=== PATIENT | male | born 1950 | race Caucasian/White ===

== ENCOUNTER 2017-09-14 06:39 | Day surgery (SDC) | payer MEDICARE, OTHER, SELFPAY ==
[2017-09-14] VITALS (13 sets, daily range): BP systolic 112–146; BP diastolic 62–87; PULSE 61–99; RESP 16–18; TEMP 36.6; O2SAT 96–100; BMI 29.8
--- NOTE | 2017-09-14 | IR_ITS ---
CARDIAC CATHETERIZATION DATE OF CATHETERIZATION:09/14/2017 8:38 AM PROCEDURES: 1. Left heart catheterization 2. Left ventriculogram 3. Selective coronary angiogram INDICATION FOR TEST: 1. Risk factors for coronary artery disease 2. Abnormal EKG 3. Angina pectoris class III Informed consent was obtained prior to the procedure. COMPLICATIONS: None ESTIMATED BLOOD LOSS: Less than 10 ml. TECHNIQUE: One percent lidocaine used to anesthetize the right anterior aspect of the wrist. The right radial artery was accessed via the Seldinger technique. A 6 [place] sheath was placed in the right radial artery. 2.5 mg of verapamil, 800 mcg of nitroglycerin and 5000 U Heparin were given through the arterial sheath. The trap catheter was also used to perform left heart catheterization and left ventriculography. At the end of the procedure the patient was transferred to the post-op holding area in stable condition for arterial sheath removal. ANGIOGRAPHIC RESULTS: 1. The left main artery normal 2. 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 The circumflex artery codominant normal 4. The right coronary artery codominant normal 5. The BRIGHT ventriculogram reveals 65% 6. The left ventricular end-diastolic pressure 10 mmHg IMPRESSION: 1. Clinically insignificant myocardial bridge unlikely to be contributing to patient's symptoms 2. Normal ejection fraction 3. Normal left ventricular end-diastolic pressure 4. No evidence of atherosclerotic heart disease PLAN: 1. Medical management 2. Beta blockers plus or minus diltiazem 3. Evaluation noncardiac chest
--- NOTE | 2017-09-14 06:44 | CA_ITS ---
PROCEDURE: 2-D M-mode and color Doppler study INDICATIONS FOR THE TEST: Chest painX COPD Heart MurmurX Tobacco Smoking Palpitations Fatigue Syncope Edema HypertensionXDiabetes Mellitus Rheumatic Fever SOBXDOE Obesity Hyperlipidemia Family History HD Additional History ABN EKG,CAD PATIENT INFORMATION HEIGHT: 72 WEIGHT:219 GENDER: Male B/P:143/67 2-D/M-MODE INTERPRETATION: 2-D MEASUREMENTS OBSERVED VALUES IN CMS Right Ventricular Dimension (RVDd) 1.5 Interventricular Septum (Thickness)(IVsd) 1.0 Left Ventricular Internal Dimensions(LVIDd) 5.0 Left Ventricular Posterior Wall (Thickness)(LVPWd) 1.1 Aortic Root 3.0 Aortic Cusp Separation 1.6 Left Atrial Dimensions (LAD) 4.0 2D 1. Left atrium is qualitatively mildly enlarged, left ventricle is normal size, mild concentric left ventricular hypertrophy, visually estimated ejection fraction 55% with no obvious regional wall motion abnormality. 2. The right atrium and right ventricle are normal size and contractility. 3. The aortic valve is minimally thickened and fibrosed. 4. The mitral valve has mitral annular calcification 5. The tricuspid valve is structurally normal. 6. The pulmonic valve is poorly visualized. 7. No significant pericardial effusion noted. DOPPLER INTERROGATION: Doppler interrogation of the aortic, mitral and tricuspid valvular presence of mild mitral and tricuspid regurgitation, tricuspid regurgitant jet velocity is insufficient for calculation of the right ventricular systolic pressure, Doppler evidence of impaired LV relaxation seen. CONCLUSION: 1. Qualitatively mildly enlarged left atrium, normal left ventricular size, mild concentric left ventricular hypertrophy, visually estimated ejection fraction 55% with no obvious regional wall motion abnormality, Doppler evidence of impaired LV relaxation seen. 2. Mild mitral and tricuspid regurgitation 3. No significant pericardial effusion noted.
[2017-09-14 07:36] LABS: Basophils # 0.1 K/mm3 (0-0.2); Basophils % 1.3 % (0.1-2.0); Eosinophils # 0.1 K/mm3 (0.0-0.4); Eosinophils % 2.6 % (0.1-12.0); Hematocrit 36.7 % (42.0-52.0); Hemoglobin 11.3 g/dL (14.1-18.0); Lymphocytes % 37.8 K/mm3 (10-50); Mean Corpuscular HGB Conc 30.8 g/dL (31.8-35.4); Mean Corpuscular Hemoglobin 25.7 pg (27.0-31.2); Mean Corpuscular Volume 83.4 fl (80-94); Mean Platelet Volume 7.8 fl (7.4-10.4); Monocytes # 0.4 K/mm3 (0.1-1.0); Monocytes % 7.7 % (1.7-9.3); Neutrophils # 2.7 K/mm3 (1.8-7.8); Neutrophils % 50.6 % (37.0-80.0); Platelet Count 267 K/mm3 (142-424); Red Blood Count 4.39 M/mm3 (4.60-6.20); Red Cell Distribution Width 13.4 % (11.5-17.5); White Blood Count 5.4 K/mm3 (4.8-10.8)
[2017-09-14 07:41] LABS: Anion Gap 7.6 mEq/L (5-15); Blood Urea Nitrogen 11 mg/dL (7-18); Carbon Dioxide 29 mmol/L (21.0-32.0); Chloride 105 mmol/L (98-107); Creatinine Clearance Estimated 90 mL/min (0-300); Creatinine,Serum 1.11 mg/dL (0.70-1.30); Estimated Glomerular Filt Rate 66 ml/min (>60); GFR (African American) 80 ML/MIN (>60); Glucose 121 mg/dL (74-106); Potassium 3.6 mmoL/L (3.5-5.1); Sodium 138 mmol/L (136-145)
== END 2017-09-14 13:19 | disposition home or self-care (01) ==
LOC: CATHLAB 06:41
PROVIDERS: Family Provider Emergency Medicine; PCP Family Medicine Geriatric Medicine; Visit Provider Internal Medicine
DX: R94.31 Abnormal electrocardiogram [ECG] [EKG] (principal); I25.10 Atherosclerotic heart disease of native coronary artery without angina pectoris; R07.9 Chest pain, unspecified; R06.09 Other forms of dyspnea; Z82.49 Family history of ischemic heart disease and other diseases of the circulatory system; R01.1 Cardiac murmur, unspecified; E11.9 Type 2 diabetes mellitus without complications; Z79.84 Long term (current) use of oral hypoglycemic drugs
CPT/HCPCS: 80048; 85025; 93306; 93458; 99152; C1725; C1769; J1644; Q9967

== ENCOUNTER 2020-12-08 15:18 | Emergency (ER) | payer MEDICARE, SELFPAY ==
[2020-12-08 15:21] VITALS: BP 133/87; PULSE 95; RESP 18; TEMP 36.9; O2SAT 98; BMI 27.7
[2020-12-08 15:49] VITALS: BP 133/87; PULSE 95; RESP 18; TEMP 36.9; O2SAT 98; BMI 27.8
--- NOTE | 2020-12-08 15:56 | HMH.EDUTC ---
[facility] Disposition Clinical Impression: Cerumen impaction Qualifiers: Laterality: left Qualified Code(s): H61.22 - Impacted cerumen, left ear Disposition: Home, Self-Care Condition on Discharge: Good Instructions: DI for Cerumen Impaction Additional Instructions: Follow up with Family Doctor or ENT for further evaluation and remove remaining wax in left ear Return if needed Over the counter Debrox may help to clear wax from ear use as directed on package Straight to ER if any life threatening symptoms Referrals: Provider,Alberto, [Primary Care Provider] - As needed Dayo Fernandez MD [Staff Physician] - Argenis Singer MD [Consulting Physician] - Time of Disposition: 16:27 Medical Decision Making - Colten Inquiry Pt receiving controlled substance: No Colten was queried for this patient: No Vital Signs: 12/08/20 15:21 12/08/20 15:49 Temperature 98.4 F 98.4 F Temperature Source Oral Oral Pulse Rate [Right] 95 H 95 H Respiratory Rate 18 18 Blood Pressure [Right Arm] 133/87 133/87 Blood Pressure Mean [Right Arm] 102 102 02 Sat by Pulse Oximetry 98 98 Oxygen Delivery Method Room Air Medical Decision Narrative: even thought dry dark wax remains in left ear canal patient reports able to hear much better now recommended follow up with ENT fur removal of remaining cerumen that remains in left ear [facility] HPI - General Stated complaint: cannot hear out of both ears Time Seen by Provider: 12/08/20 15:56 Mode of Arrival: Ambulatory Source of Information: Patient Limitations: No Limitations Description of Symptoms (Recalled from Triage Doc. by RN): pt c/o hearing loss bilaterally and that his ears feel stopped up. HEENT Symptoms (Recalled from RN notes): Yes (ears feel stopped up) Resp Symptoms (Recalled from RN notes): No Skin Symptoms (Recalled from RN notes): No MS Symptoms (Recalled from RN notes): No Functional Status (Recalled from RN notes): na - History of Present Illness Provider Complaint: Patient states that he feels like his ears are stopped up and wanted to get them cleaned out States that he can hear out of his right ear but left ear feels like it is closed off Denies pain states that he just feels like his ear is stopped up with wax - Related Data Home Medications Medication Instructions Recorded Confirmed atorvastatin 20 mg tablet 20 mg PO DAILY tab 09/06/17 08/26/18 cyclobenzaprine 10 mg tablet 10 mg PO HS tab 09/06/17 08/26/18 gabapentin 600 mg tablet 600 mg PO TID 09/06/17 08/26/18 lisinopril 20 mg tablet 20 mg PO DAILY tab 09/06/17 08/26/18 ropinirole 1 mg tablet 1 mg PO QHS tab 09/06/17 08/26/18 oxycodone-acetaminophen 7.5 mg-325 1 tab PO TID PRN tab 05/07/18 mg tablet ranitidine HCl 150 mg tablet 150 mg PO DAILY 05/07/18 metformin 500 mg tablet 500 mg PO BID tab 11/05/18 omeprazole 20 mg tablet,delayed 20 mg PO DAILY 02/12/19 02/12/19 release Previous Rx's Medication Instructions Recorded aspirin 81 mg tablet,delayed 81 mg PO DAILY #30 tab 09/06/17 release buspirone 10 mg tablet 10 mg PO DAILY PRN #30 tab 02/12/19 metoprolol succinate 200 mg 200 mg PO DAILY #30 tab 02/12/19 tablet,extended release 24 hr Allergies Allergy/AdvReac Type Severity Reaction Status Date / Time hydrocodone [HYDROCODONE] Allergy Unknown ITCHING Verified 12/08/20 15:53 streptomycin [STREPTOMYCIN] Allergy Unknown ITCHING Verified 12/08/20 15:53 - Worker's Comp Is this a Worker's Comp case?: No [facility] History - Hepatitis A Screen Drug use history?: No High risk sexual behaviors?: No History of sexually transmitted infection?: No Currently employed?: No Childcare worker?: No Do you have indoor plumbing?: Yes Do you have electricity?: Yes Attestation statement:: This patient has been screened for Hepatitis A risk factors. I have reviewed the patient's past medical history: Yes Medical History: Reports:: Atherosclerotic Heart Disease, Coronary Artery Disease, Diabetes
[2020-12-08 16:35] VITALS: BP 133/87; PULSE 95; RESP 16; TEMP 36.8
== END 2020-12-08 16:35 | disposition home or self-care (01) ==
PROVIDERS: Emergency Provider Nurse Practitioner
DX: H61.22 Impacted cerumen, left ear (principal); I10 Essential (primary) hypertension; E78.5 Hyperlipidemia, unspecified; E11.9 Type 2 diabetes mellitus without complications; I25.10 Atherosclerotic heart disease of native coronary artery without angina pectoris; K21.9 Gastro-esophageal reflux disease without esophagitis; Z87.442 Personal history of urinary calculi; Z79.899 Other long term (current) drug therapy
CPT/HCPCS: G0463; 99202

== ENCOUNTER 2022-12-23 11:23 | Emergency (ER) | payer MEDICARE, SELFPAY ==
[2022-12-23 11:24] VITALS: BP 149/75; PULSE 99; RESP 17; TEMP 36.6; O2SAT 95; BMI 26.1
--- NOTE | 2022-12-23 11:29 | HMH.EDBACK ---
Discharge Plan Disposition Patient Disposition: Home, Self-Care Condition: Fair Prescriptions Prescriptions: New baclofen 5 mg tablet 5 mg PO TID PRN (Reason: muscle spasm) Qty: 20 0RF No Action lisinopril 20 mg tablet 20 mg PO DAILY atorvastatin 20 mg tablet 20 mg PO DAILY ropinirole [Requip] 1 mg tablet 1 mg PO QHS cyclobenzaprine 10 mg tablet 10 mg PO HS gabapentin [Neurontin] 600 mg tablet 600 mg PO TID aspirin [Adult Low Dose Aspirin] 81 mg tablet,delayed release (DR/EC) 81 mg PO DAILY Qty: 30 5RF oxycodone-acetaminophen [Percocet] 7.5-325 mg tablet 1 tab PO TID PRN metformin 500 mg tablet 500 mg PO BID ranitidine HCl 150 mg tablet 150 mg PO DAILY omeprazole 20 mg tablet,delayed release (DR/EC) 20 mg PO DAILY metoprolol succinate 200 mg tablet extended release 24 hr 200 mg PO DAILY Qty: 30 4RF buspirone 10 mg tablet 10 mg PO DAILY PRN (Reason: anxiety) Qty: 30 5RF Referrals Follow up/Referrals: Kan You DO [Primary Care Provider] - See instructions Activity Restrictions/Add. Instructions Additional Instructions/Restrictions: Follow-up with your primary care doctor in a few days if your symptoms do not improve. Return to the emergency department if you develop a fever or if you worsen in any way. Do not drive today because you have received morphine in the emergency department. Clinical Impressions Clinical Impression: Acute thigh pain Qualifiers: Laterality: unspecified laterality Qualified Code(s): M79.659 - Pain in unspecified thigh Instructions Patient Instructions: DI for Acute Pain -- Adult Discharge ED Provider: Oral Coello Back Pain HPI General Chief Complaint: PAIN Stated Complaint: right side knee pain, no accident Time Seen by Provider: 12/23/22 11:29 History of Present Illness HPI Narrative: The patient presents to the emergency department complaining of bilateral upper thigh pain since . He was seen at [facility] yesterday and was prescribed a medication which she has not filled yet. The patient does not know the name of the medication. He states that he underwent x-ray studies which did not show any acute fractures. He denies any trauma. He states that he was not examined at the [facility] emergency department. He denies fevers, vomiting, diarrhea or back pain. He states that he is on an antibiotic for a knee infection. Related Data Home Medications Medication Instructions Recorded Confirmed atorvastatin 20 mg tablet 20 mg PO DAILY 09/06/17 08/26/18 cyclobenzaprine 10 mg tablet 10 mg PO HS 09/06/17 08/26/18 gabapentin 600 mg tablet 600 mg PO TID 09/06/17 08/26/18 (Neurontin) lisinopril 20 mg tablet 20 mg PO DAILY 09/06/17 08/26/18 ropinirole 1 mg tablet (Requip) 1 mg PO QHS 09/06/17 08/26/18 oxycodone-acetaminophen 7.5 mg-325 1 tab PO TID PRN 05/07/18 mg tablet (Percocet) ranitidine HCl 150 mg tablet 150 mg PO DAILY 05/07/18 metformin 500 mg tablet 500 mg PO BID 11/05/18 omeprazole 20 mg tablet,delayed 20 mg PO DAILY 02/12/19 02/12/19 release Previous Rx's Medication Instructions Recorded aspirin 81 mg tablet,delayed 81 mg PO DAILY #30 tabs 09/06/17 release (Adult Low Dose Aspirin) buspirone 10 mg tablet 10 mg PO DAILY PRN anxiety #30 tabs 02/12/19 metoprolol succinate 200 mg 200 mg PO DAILY #30 tabs 02/12/19 tablet,extended release 24 hr baclofen 5 mg tablet 5 mg PO TID PRN muscle spasm #20 12/23/22 tabs Allergies Allergy/AdvReac Type Severity Reaction Status Date / Time hydrocodone [HYDROCODONE] Allergy Unknown ITCHING Verified 12/08/20 15:53 streptomycin [STREPTOMYCIN] Allergy Unknown ITCHING Verified 12/08/20 15:53 [facility] Disclaimer: The information contained in this section may have been updated after the patient was seen, as this information can be updated by other users. Medical History (Updated 12/23
--- NOTE | 2022-12-23 11:30 | PC.NURSE ---
DR MATA AT BEDSIDE
[2022-12-23 11:41] VITALS: BP 163/85; PULSE 78; O2SAT 95
[2022-12-23 11:54] LABS: Basophils # 0.1 K/mm3 (0-0.2); Basophils % 0.6 % (0.1-2.0); Eosinophils # 0.1 K/mm3 (0.0-0.4); Eosinophils % 0.5 % (0.1-12.0); Hematocrit 37.7 % (42.0-52.0); Hemoglobin 11.5 g/dL (14.1-18.0); Lymphocytes # 1.1 K/mm3 (0.7-4.5); Lymphocytes % 10.5 % (10-50); Mean Corpuscular HGB Conc 30.5 g/dL (31.8-35.4); Mean Corpuscular Hemoglobin 26.6 pg (27.0-31.2); Mean Corpuscular Volume 87.3 fl (80-94); Mean Platelet Volume 7.9 fl (7.4-10.4); Monocytes # 0.6 K/mm3 (0.1-1.0); Monocytes % 5.9 % (1.7-9.3); Neutrophils # 8.4 K/mm3 (1.8-7.8); Neutrophils % 82.5 % (37.0-80.0); Platelet Count 353 K/mm3 (142-424); Red Blood Count 4.32 M/mm3 (4.60-6.20); Red Cell Distribution Width 15.6 % (11.5-17.5); White Blood Count 10.2 K/mm3 (4.8-10.8)
[2022-12-23 11:57] LABS: Chloride 98 mmol/L (98-107); Potassium 4.3 mmoL/L (3.5-5.1)
[2022-12-23 11:58] LABS: Sodium 134 mmol/L (136-145)
[2022-12-23 12:00] LABS: Anion Gap 17.3 mEq/L (5-15); Blood Urea Nitrogen 22 mg/dl (9-20); Carbon Dioxide 23 mmol/L (22.0-30.0); Creatinine Clearance Estimated 56 mL/min (50-200); Estimated Glomerular Filt Rate 46 ml/min (>60); GFR (African American) 56 ML/MIN (>60)
[2022-12-23 12:01] LABS: Calcium 8.8 mg/dl (8.4-10.2); Glucose 232 mg/dl (74-100)
--- NOTE | 2022-12-23 12:16 | PC.NURSE ---
DR MATA AT BEDSIDE TO UPDATE PT ON POC
[2022-12-23 12:36] VITALS: BP 138/57; PULSE 76; RESP 18; TEMP 36.4; O2SAT 96
== END 2022-12-23 12:38 | disposition home or self-care (01) ==
PROVIDERS: Emergency Provider Emergency Medicine; PCP Family Medicine
DX: M79.659 Pain in unspecified thigh (principal); E11.65 Type 2 diabetes mellitus with hyperglycemia; R01.1 Cardiac murmur, unspecified; Z79.84 Long term (current) use of oral hypoglycemic drugs
CPT/HCPCS: 80048; 85025; 96372; 99284; 99285

== ENCOUNTER 2022-12-28 08:16 | Observation (INO) | payer MEDICARE, SELFPAY ==
[2022-12-28] VITALS (12 sets, daily range): BP systolic 123–168; BP diastolic 64–87; PULSE 62–81; RESP 16–19; TEMP 36.3–36.7; O2SAT 93–99; BMI 26.4; BMI 23.6
--- NOTE | 2022-12-28 08:21 | ECG_ITS ---
APPROVED REPORT Exam: Resting ECG HR:79 bpm ECG Measurements Heart Rate 79 AXES MO 182 P 72 QRSd 88 QRS 58 QT 411 T 7 QTc [address] DEVIATION AND MODERATE T-WAVE ABNORMALITY, CONSIDER LATERAL ISCHEMIA [-0.1+ mV T-WAVE IN I/aVL/V5/V6] ST DEVIATION AND MODERATE T-WAVE ABNORMALITY, CONSIDER INFERIOR ISCHEMIA [-0.1+ mV T-WAVE IN II/aVF] ABNORMAL ECG UNCONFIRMED REPORT Electronically signed by : Alin Clemente MD 12/28/2022 21:14:31
--- NOTE | 2022-12-28 08:36 | XR_ITS ---
FINAL REPORT CLINICAL HISTORY: cough, altered mental status FINDINGS: TWO VIEW CHEST The heart size is normal. The mediastinum is normal. The lungs are clear. There is no pneumothorax. There is a left subclavian pace maker. IMPRESSION: No acute cardiopulmonary process. Reviewed, Interpreted and Dictated by Kan Flood III, MD Transcribed by Colby Lieberman Authenticated and [facility]
[2022-12-28 08:45] LABS: Basophils # 0.1 K/mm3 (0-0.2); Basophils % 0.4 % (0.1-2.0); Eosinophils # 0.1 K/mm3 (0.0-0.4); Eosinophils % 0.7 % (0.1-12.0); Hematocrit 39.5 % (42.0-52.0); Hemoglobin 12.2 g/dL (14.1-18.0); Lymphocytes % 15.2 % (10-50); Mean Corpuscular HGB Conc 30.9 g/dL (31.8-35.4); Mean Corpuscular Hemoglobin 26.9 pg (27.0-31.2); Mean Platelet Volume 8.2 fl (7.4-10.4); Monocytes # 1.2 K/mm3 (0.1-1.0); Monocytes % 9.5 % (1.7-9.3); Neutrophils # 9.7 K/mm3 (1.8-7.8); Neutrophils % 74.2 % (37.0-80.0); Platelet Count 473 K/mm3 (142-424); Red Blood Count 4.54 M/mm3 (4.60-6.20); Red Cell Distribution Width 15.8 % (11.5-17.5); White Blood Count 13.1 K/mm3 (4.8-10.8)
[2022-12-28 08:46] LABS: Chloride 102 mmol/L (98-107); Potassium 4.3 mmoL/L (3.5-5.1); Sodium 139 mmol/L (136-145)
[2022-12-28 08:48] LABS: Blood Urea Nitrogen 32 mg/dl (9-20); Creatinine Clearance Estimated 53 mL/min (50-200); Estimated Glomerular Filt Rate 43 ml/min (>60); GFR (African American) 52 ML/MIN (>60)
[2022-12-28 08:49] LABS: Alanine Aminotransferase 559 U/L (12-78); Albumin Level 3.4 g/dl (3.5-5.0); Alkaline Phosphatase 129 U/L (38-126); Anion Gap 14.3 mEq/L (5-15); Aspartate Amino Transferase 302 U/L (17-59); Bilirubin,Total 2.7 mg/dl (0.2-1.3); Calcium 8.8 mg/dl (8.4-10.2); Carbon Dioxide 27 mmol/L (22.0-30.0); Globulin 3.4 g/dL (1.3-3.2); Glucose 163 mg/dl (74-100); Total Protein,Serum 6.8 g/dl (6.3-8.2)
--- NOTE | 2022-12-28 08:58 | PC.NURSE ---
Dr. Sousa at BS
[2022-12-28 09:01] LABS: Troponin I 0.02 ng/ml (0.00-0.034)
--- NOTE | 2022-12-28 09:05 | CT_ITS ---
FINAL REPORT TECHNIQUE: Thin section axial CT with IV contrast supplemented with multiplanar reconstruction under CT angiogram protocol. 3-D reconstructions were performed. This study was performed with techniques to keep radiation doses as low as reasonably achievable (ALARA). Individualized dose reduction techniques using automated exposure control or adjustment of mA and/or kV according to the patient''s size were employed. CLINICAL HISTORY: AMS FINDINGS: There is motion on many of the images which decreases the sensitivity of the exam. No aneurysm is seen. Major intracranial vessels are patent without significant stenosis. IMPRESSION: Exam limited by patient motion. No large vessel occlusion. Reviewed, Interpreted and Dictated by Kan Flood III, MD Transcribed by Tiffany Olea Authenticated and [facility]
--- NOTE | 2022-12-28 09:05 | CT_ITS ---
FINAL REPORT TECHNIQUE: Thin section axial CT with IV contrast supplemented with multiplanar reconstruction under CT angiogram protocol. This study was performed with techniques to keep radiation doses as low as reasonably achievable (ALARA). Individualized dose reduction techniques using automated exposure control or adjustment of mA and/or kV according to the patient''s size were employed. NASCET criteria was utilized during interpretation. CLINICAL HISTORY: LLE weakness, AMS for 1.5 weeks FINDINGS: There is motion on many of the images which decreases the sensitivity of the exam. Aortic arch: Arch shows no significant narrowing. Great vessel origins are widely patent. Right carotid: No significant stenosis is seen of the cervical common or internal carotid artery. Left carotid: No significant stenosis is seen of the cervical common or internal carotid artery. Vertebral: Right vertebral artery is dominant. No significant stenosis is present. IMPRESSION: Exam limited by motion. No significant stenosis. Reviewed, Interpreted and Dictated by Kan Flood III, MD Transcribed by Tiffany Olea Authenticated and [facility]
--- NOTE | 2022-12-28 09:08 | HMH.EDGENADL ---
Discharge Plan Disposition Patient Disposition: Admitted Chief Complaint: Altered Mental Status Prescriptions Prescriptions: No Action lisinopril 20 mg tablet 20 mg PO DAILY atorvastatin 20 mg tablet 20 mg PO DAILY ropinirole [Requip] 1 mg tablet 1 mg PO QHS cyclobenzaprine 10 mg tablet 10 mg PO HS gabapentin [Neurontin] 600 mg tablet 600 mg PO TID aspirin [Adult Low Dose Aspirin] 81 mg tablet,delayed release (DR/EC) 81 mg PO DAILY Qty: 30 5RF oxycodone-acetaminophen [Percocet] 7.5-325 mg tablet 1 tab PO TID PRN metformin 500 mg tablet 500 mg PO BID ranitidine HCl 150 mg tablet 150 mg PO DAILY omeprazole 20 mg tablet,delayed release (DR/EC) 20 mg PO DAILY metoprolol succinate 200 mg tablet extended release 24 hr 200 mg PO DAILY Qty: 30 4RF buspirone 10 mg tablet 10 mg PO DAILY PRN (Reason: anxiety) Qty: 30 5RF baclofen 5 mg tablet 5 mg PO TID PRN (Reason: muscle spasm) Qty: 20 0RF Referrals Follow up/Referrals: Provider,Referral, MD [Primary Care Provider] - See instructions Clinical Impressions Clinical Impression: Inability to walk, Abnormal LFTs, Weakness Instructions Patient Instructions: DI for Altered Mental Status Discharge ED Provider: Eitan Sousa General Adult HPI General Chief complaint: Altered Mental Status Stated complaint: AMS Time Seen by Provider: 12/28/22 08:57 History of Present Illness HPI narrative: Patient is a 72-year-old male presenting today with altered mental status and left-sided weakness. History is primarily obtained from his daughter as he is encephalopathic currently. She states he has been talking out of his head for a few days and has been speaking to their mother who has been for several years. He did state that he had left lower extremity surgery on his knee and he thinks that his left-sided weakness is associated with that however he has no focal swelling redness or fever and his daughter states that he has been unable to move his left leg for about a week and a half and has been able to walk. He denies any upper extremity weakness. He denies any other symptoms. She states he has not had any cough or other infectious symptoms. He does not have a known history of cirrhosis that she is aware of. He has not fallen hit his head that he is aware of or that she is aware of. So basically she brought him in for left-sided lower extremity weakness and altered mental status over the last week and a half. Related Data Home Medications Medication Instructions Recorded Confirmed atorvastatin 20 mg tablet 20 mg PO DAILY 09/06/17 08/26/18 cyclobenzaprine 10 mg tablet 10 mg PO HS 09/06/17 08/26/18 gabapentin 600 mg tablet 600 mg PO TID 09/06/17 08/26/18 (Neurontin) lisinopril 20 mg tablet 20 mg PO DAILY 09/06/17 08/26/18 ropinirole 1 mg tablet (Requip) 1 mg PO QHS 09/06/17 08/26/18 oxycodone-acetaminophen 7.5 mg-325 1 tab PO TID PRN 05/07/18 mg tablet (Percocet) ranitidine HCl 150 mg tablet 150 mg PO DAILY 05/07/18 metformin 500 mg tablet 500 mg PO BID 11/05/18 omeprazole 20 mg tablet,delayed 20 mg PO DAILY 02/12/19 02/12/19 release Previous Rx's Medication Instructions Recorded aspirin 81 mg tablet,delayed 81 mg PO DAILY #30 tabs 09/06/17 release (Adult Low Dose Aspirin) buspirone 10 mg tablet 10 mg PO DAILY PRN anxiety #30 tabs 02/12/19 metoprolol succinate 200 mg 200 mg PO DAILY #30 tabs 02/12/19 tablet,extended release 24 hr baclofen 5 mg tablet 5 mg PO TID PRN muscle spasm #20 12/23/22 tabs Allergies Allergy/AdvReac Type Severity Reaction Status Date / Time hydrocodone [HYDROCODONE] Allergy Unknown ITCHING Verified 12/08/20 15:53 streptomycin [STREPTOMYCIN] Allergy Unknown ITCHING Verified 12/08/20 15:53 [facility] Disclaimer: The information contained in this section may have been updated after the patient was seen, as this information can be
--- NOTE | 2022-12-28 09:16 | PC.NURSE ---
Pt taken to CT
--- NOTE | 2022-12-28 09:21 | CT_ITS ---
FINAL REPORT CLINICAL HISTORY: AMS FINDINGS: Axial images of the head were obtained without contrast. Coronal reformatted images were also obtained. This study was performed with techniques to keep radiation doses as low as reasonably achievable (ALARA). Individualized dose reduction techniques using automated exposure control or adjustment of mA and/or kV according to the patient's size were employed. There is generalized age-appropriate atrophy. Periventricular low-attenuation areas are seen consistent with moderate chronic ischemic changes. There is no evidence of intracranial hemorrhage or mass. There is no evidence of acute infarct. 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 There is no evidence of shift of the midline structures. No skull abnormality is seen on the bone window images. IMPRESSION: Atrophy and mild periventricular chronic ischemic changes. No acute intracranial abnormality identified. Reviewed, Interpreted and Dictated by Kan Flood III, MD Transcribed by Tiffany Olea Authenticated and [facility]
[2022-12-28 09:33] LABS: Activated Partial Thrombo Time 25.9 seconds (22.8-30.6); INR 1.09 (0.9-1.1); Prothrombin Time 11.7 seconds (10.1-12.5)
--- NOTE | 2022-12-28 09:37 | PC.NURSE ---
covid swab sent to lab
[2022-12-28 09:38] LABS: Coronavirus 19, PCR Not Detected (NotDetected); Influenza A, PCR Not Detected (NotDetected); Influenza B, PCR Not Detected (NotDetected)
--- NOTE | 2022-12-28 09:44 | PC.NURSE ---
pt trying to void in urinal at this time
--- NOTE | 2022-12-28 09:50 | PC.NURSE ---
UA sent to lab
[2022-12-28 09:54] LABS: Appearance,Urine SL CLOUDY (Clear); Blood, Urine 3+ (Negative); Color,Urine YELLOW (Yellow); Glucose,Urine (UA) Negative (Negative); Ketones,Urine Negative (Negative); Leukocyte Esterase,Urine Negative (Negative); Microscopic, Urine URINE MICROSCOPIC (MICROSCOPIC); Nitrate,Urine Negative (Negative); PH,Urine 5.5 (5.0-8.5); Protein,Urine TRACE (Negative); Specific Gravity, Urine 1.025 (1.005-1.030)
[2022-12-28 09:56] LABS: Ammonia < 9 umol/L (9-30)
[2022-12-28 09:58] LABS: Bilirubin,Urine 1+ (Negative)
[2022-12-28 10:07] LABS: Bacteria,Urine 2+ /lpf; Hyaline Casts,Urine Occasional #/lpf (0); RBC,Urine 20-50 #/hpf (0-3); Squamous Epithelial Cell,Urine Occasional #/hpf (0-5)
--- NOTE | 2022-12-28 10:23 | PC.NURSE ---
contacted rad to check on status of CT results-rad staff send down preliminary reports
--- NOTE | 2022-12-28 10:34 | XR_ITS ---
FINAL REPORT CLINICAL HISTORY: knee pain FINDINGS: LEFT KNEE SERIES Three views of the left knee were obtained. There is no acute fracture or dislocation. The joint spaces are preserved. There are soft tissue calcifications superior to the patella. There are vascular calcifications. There are postoperative changes from a knee arthroplasty. IMPRESSION: No acute bony abnormality. Reviewed, Interpreted and Dictated by Kan Flood III, MD Transcribed by Colby Lieberman Authenticated and [facility]
--- NOTE | 2022-12-28 10:52 | PC.NURSE ---
Rounded on patient; no needs at this time. Pt playing on cell phone while sitting up on ED stretcher. No needs at this time.
--- NOTE | 2022-12-28 11:05 | PC.NURSE ---
called Care Management for pt admission
[2022-12-28 11:34] LABS: Hemoglobin A1C 6.3 % (4.0-6.0)
--- NOTE | 2022-12-28 11:50 | PC.NURSE ---
rounded on patient, updated patient about being admitted
--- NOTE | 2022-12-28 12:03 | PC.NURSE ---
report called to ARAMIS Cm on second floor at this time. States she will send staff down to transport pt.
[2022-12-28 12:44] LABS: Troponin I < 0.01 ng/ml (0.00-0.034)
--- NOTE | 2022-12-28 14:24 | EXP.HP ---
History of Present Illness *Admission Date: 12/28/22 *Reason for visit:: Weakness and confusion *History of present illness: Mr. Hardwick is a 72-year-old male with history of A-fib, hypertension, hypothyroidism. Left knee replaced fall of last year. 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 He is on chronic suppressive therapy with amoxicillin daily. He presented to the ER today with his daughter who helps give history. Concern for encephalopathy and worsening weakness. He has been confused for the past few days. He even noted that he was confused per report from family and documentation. His weakness has progressed over the past few weeks and he has had difficulty walking over that timeframe. Left side is his main source of weakness. Denies any acute trauma. No acute changes. No upper extremity weakness. No chest pain, cough, shortness of breath, nausea, vomiting, diarrhea. No known history of cirrhosis. No falls and trauma. Work-up in the ER positive for elevated liver enzymes. Urinalysis abnormal. Patient unable to walk. ER consulted medicine for admission given unexplained elevation in liver enzymes, weakness, confusion on exam. After arrival to the floor, patient is back to baseline mentation. Alert and oriented x4. Complaining of weakness in his left leg. Stable on room air. No nausea or vomiting. Denies any abdominal pain. Reports surgery with knee replacement was performed at . Has been seeing family medicine and orthopedics (Dr. Fu) at . Currently taking amoxicillin daily for suppressive therapy. [facility] Disclaimer: The information contained in this section may have been updated after the patient was seen, as this information can be updated by other users. Medical History Chronic back pain CVA (cerebral vascular accident) Depression DM2 (diabetes mellitus, type 2) GERD (gastroesophageal reflux disease) Infected prosthetic knee joint Murmur Surgical History H/O cardiac catheterization H/O colonoscopy H/O wrist surgery History of left knee replacement Family History Family history of cancer in mother FH: heart attack Family history of early CAD Social History Smoking Status: Former smoker alcohol intake: never substance use type: denies use current occupational status: retired Travel in the last 8 weeks: None household members: spouse Meds Home Medications and Allergies Home Medications Medication Instructions Recorded Confirmed Type cyclobenzaprine 10 mg tablet 10 mg PO HS Pain 09/06/17 12/28/22 History gabapentin 600 mg tablet 600 mg PO TID Pain 09/06/17 12/28/22 History (Neurontin) metformin 500 mg tablet 500 mg PO BID Diabetes 11/05/18 12/28/22 History buspirone 10 mg tablet 10 mg PO DAILY PRN anxiety #30 tabs 02/12/19 12/28/22 Rx amiodarone 400 mg tablet 400 mg PO BID Blood Pressure 12/28/22 12/28/22 History amoxicillin 875 mg tablet 875 mg PO BID Antibiotic 12/28/22 12/28/22 History apixaban 5 mg tablet (Eliquis) 5 mg PO BID Blood Thinner/Coronary 12/28/22 12/28/22 History Myocardial Bridge aspirin 81 mg tablet,delayed 81 mg PO DAILY heart health 12/28/22 12/28/22 History release (Adult Low Dose Aspirin) atorvastatin 40 mg tablet 40 mg PO HS cholestereol 12/28/22 12/28/22 History baclofen 5 mg tablet 5 mg PO TID PRN muscle spasms 12/28/22 12/28/22 History diltiazem HCl 180 mg 180 mg PO DAILY Blood Pressure 12/28/22 12/28/22 History capsule,extended release 24 hr fluticasone propionate 50 2 spray intranasal DAILY Allergy 12/28/22 12/28/22 History mcg/actuation nasal Symptoms spray,suspension loratadine 10 mg tablet 10 mg PO DAILY Allergy Symptoms 12/28/22 12/28/22 History metoprolol succinate 50 mg 75 mg PO BID Bloo
[2022-12-28 15:17] LABS: Troponin I < 0.01 ng/ml (0.00-0.034)
--- NOTE | 2022-12-28 15:40 | HMH.PHAINT1 ---
Pharmacy Intervention Comments: Patient's home medications reviewed and verified with external pharmacy. -Roland Mckeon, Pharm Student
[2022-12-28 20:21] LABS: POC Glucose,Bedside 122 (70-110)
--- NOTE | 2022-12-28 23:45 | PC.NURSE ---
pt states he took as shower yesterday, refused him shower tonight after multiple attempts by GOYO VICENTE and myself. A&Ox4 tonight and states he would like to be called Thomas . very well spirited and oriented to surroundings and situation, no confusion. urine was red/brown strong smell, voids per urinal. pt received oxycodone for 9 out 10pain at 2200, reassessed and pt was asleep, didn't wake r/t prior request to allow him to sleep. took pills whole. RA. lsat bm 12/27/22. states he uses a walker and/or WC at home. no c/o of current pain, but states he does have pain at times in left knee.
--- NOTE | 2022-12-29 | US_ITS ---
FINAL REPORT CLINICAL HISTORY: .transaminitis FINDINGS: Sonographic images of the right upper quadrant were obtained. The pancreas is partially obscured. The liver has a coarsened echotexture which is nonspecific and may represent cirrhosis. The gallbladder appears normal without evidence of gallstones.There is no evidence of biliary ductal dilatation.The common duct measures 2 mm. Limited images of the right kidney are unremarkable. IMPRESSION: Findings worrisome for cirrhosis. Reviewed, Interpreted and Dictated by Kan Flood III, MD Transcribed by Tiffany Olea Authenticated and [facility]
[2022-12-29 04:00] VITALS: BP 102/53; PULSE 62; RESP 18; TEMP 36.7; O2SAT 91; BMI 23.8
[2022-12-29 05:56] LABS: POC Glucose,Bedside 91 (70-110)
[2022-12-29 06:08] LABS: Basophils % 0.6 % (0.1-2.0); Eosinophils # 0.2 K/mm3 (0.0-0.4); Eosinophils % 2.2 % (0.1-12.0); Hematocrit 36.9 % (42.0-52.0); Hemoglobin 11.3 g/dL (14.1-18.0); Lymphocytes # 1.2 K/mm3 (0.7-4.5); Lymphocytes % 17.4 % (10-50); Mean Corpuscular HGB Conc 30.7 g/dL (31.8-35.4); Mean Corpuscular Hemoglobin 26.7 pg (27.0-31.2); Mean Corpuscular Volume 87.2 fl (80-94); Mean Platelet Volume 7.6 fl (7.4-10.4); Monocytes # 0.7 K/mm3 (0.1-1.0); Monocytes % 9.8 % (1.7-9.3); Neutrophils # 4.8 K/mm3 (1.8-7.8); Neutrophils % 70.1 % (37.0-80.0); Platelet Count 343 K/mm3 (142-424); Red Blood Count 4.23 M/mm3 (4.60-6.20); White Blood Count 6.9 K/mm3 (4.8-10.8)
[2022-12-29 06:16] LABS: Alanine Aminotransferase 492 U/L (12-78); Albumin Level 2.8 g/dl (3.5-5.0); Alkaline Phosphatase 117 U/L (38-126); Anion Gap 9.6 mEq/L (5-15); Aspartate Amino Transferase 223 U/L (17-59); Bilirubin,Total 2.3 mg/dl (0.2-1.3); Blood Urea Nitrogen 30 mg/dl (9-20); Calcium 8.2 mg/dl (8.4-10.2); Carbon Dioxide 27 mmol/L (22.0-30.0); Chloride 105 mmol/L (98-107); Creatinine Clearance Estimated 54 mL/min (50-200); Estimated Glomerular Filt Rate 50 ml/min (>60); GFR (African American) 60 ML/MIN (>60); Globulin 2.8 g/dL (1.3-3.2); Glucose 93 mg/dl (74-100); Magnesium 1.8 mg/dl (1.6-2.3); Potassium 3.6 mmoL/L (3.5-5.1); Sodium 138 mmol/L (136-145); Total Protein,Serum 5.6 g/dl (6.3-8.2)
--- NOTE | 2022-12-29 06:55 | PC.NURSE ---
got up to WC with assist x2. pt was able to bear weight
--- NOTE | 2022-12-29 07:56 | EXP.ACUTE.PN ---
Subjective *Date: 12/29/22 *Time: 09:34 Interval history: Patient feeling little better this morning. Alert and oriented x4. No fever overnight. Reviewed labs showing some mild improvement in liver enzymes. Stable on room air. Able to stand and transition to wheelchair with nursing this morning. Awaiting PT eval. Medical Exam Vital signs and Labs for Last 24 Hours: Vital Signs Temp Pulse Pulse Resp BP BP Pulse Ox 12/29/22 04:00 98.0 F 62 18 102/53 L 91 L 12/29/22 06:26 12/29/22 04:49 12/29/22 03:00 12/29/22 00:54 12/28/22 23:00 12/28/22 21:00 12/28/22 20:00 12/28/22 20:00 97.7 F 78 18 129/66 93 L 12/28/22 18:46 12/28/22 17:00 12/28/22 15:29 98.0 F 62 16 123/64 93 L 12/28/22 15:00 12/28/22 13:00 12/28/22 12:45 97.6 F 73 16 151/78 H 12/28/22 12:34 97.4 F L 74 16 156/83 H 96 12/28/22 12:01 73 149/81 H 99 12/28/22 11:31 71 147/84 H 96 12/28/22 11:01 72 144/69 H 97 12/28/22 10:30 76 168/84 H 96 12/28/22 10:00 64 155/74 H 98 12/28/22 09:34 70 143/75 H 97 12/28/22 08:18 97.6 F 80 17 141/71 H 94 L 12/28/22 09:00 81 19 155/87 H 97 O2 Del Method 12/29/22 04:00 Room Air 12/29/22 06:26 Room Air 12/29/22 04:49 Room Air 12/29/22 03:00 Room Air 12/29/22 00:54 Room Air 12/28/22 23:00 Room Air 12/28/22 21:00 Room Air 12/28/22 20:00 Room Air 12/28/22 20:00 Room Air 12/28/22 18:46 Room Air 12/28/22 17:00 Room Air 12/28/22 15:29 Room Air 12/28/22 15:00 Room Air 12/28/22 13:00 Room Air 12/28/22 12:45 Room Air 12/28/22 12:34 Room Air 12/28/22 12:01 12/28/22 11:31 12/28/22 11:01 12/28/22 10:30 Room Air 12/28/22 10:00 12/28/22 09:34 12/28/22 08:18 Room Air 12/28/22 09:00 Intake and Output 12/28/22 12/28/22 12/29/22 15:59 23:59 07:59 Intake Total 80 / 80 Output Total 200 / 200 Balance -200 / -120 80 / 80 Intake: Intake, Oral Amount 60 / 60 Intake, Other Amount 20 / 20 Output: Output, Urine Amount 200 / 200 Other: Intake, Other Source Saline Solution Weight 81.335 kg 81.76 kg Patient Weight 12/29/22 23:59 Weight 81.76 kg Laboratory Results - last 24 hr 12/28/22 08:26: WBC 13.1 H, RBC 4.54 L, Hgb 12.2 L, Hct 39.5 L, MCV 87.0, MCH 26.9 L, MCHC 30.9 L, RDW 15.8, Plt Count 473 H, MPV 8.2, Neut % (Auto) 74.2, Lymph % (Auto) 15.2, [place] % (Auto) 9.5 H, Eos % (Auto) 0.7, Baso % (Auto) 0.4, Neut # (Auto) 9.7 H, Lymph # (Auto) 2.0, [place] # (Auto) 1.2 H, Eos # (Auto) 0.1, Baso # (Auto) 0.1, PT 11.7, INR 1.09, APTT 25.9, Sodium 139, Potassium 4.3, Chloride 102, Carbon Dioxide 27, Anion Gap 14.3, BUN 32 H, Creatinine 1.60 H, Estimated Creat Clear 53, Estimated GFR 43 L, Est GFR ( Amer) 52 L, Glucose 163 H, Hemoglobin A1c 6.3 H, Calcium 8.8, Total Bilirubin 2.7 H, AST 302 H*, ALT 559 H*, Alkaline Phosphatase 129 H, Troponin I 0.02, Total Protein 6.8, Albumin 3.4 L, Globulin 3.4 H, Albumin/Globulin Ratio 1.0 L, TSH 0.60 12/28/22 09:35: SARS-CoV-2 (PCR) Not detected, Influenza A Untype (PCR) Not detected, Influenza Type B (PCR) Not detected 12/28/22 09:40: Ammonia < 9 L 12/28/22 09:49: Urine Color Yellow, Urine Appearance Sl cloudy, Urine pH 5.5, Ur Specific [place] 1.025, Urine Protein Trace, Urine Glucose (UA) Negative, Urine Ketones Negative, Urine Blood 3+, Urine Nitrate Negative, Urine Bilirubin 1+ A, Urine Urobilinogen 4.0, Ur Leukocyte Esterase Negative, Urine RBC 20-50, Urine WBC 3-5, Ur Squamous Epith Cells Occasional, Urine Bacteria 2+, Hyaline Casts Occasional 12/28/22 12:10: Troponin I < 0.01 12/28/22 14:44: Troponin I < 0.01 12/28/22 20:08: POC Glucose 122 H 12/29/22 05:45: WBC 6.9 D, RBC 4.23 L, Hgb 11.3 L, Hct 36.9 L, MCV 87.2, MCH 26.7 L, MCHC 30.7 L, RDW 16.0, Plt Count 343 D, MPV 7.6, Neut % (Auto) 70.1, Lymph % (Auto) 17.4, [place] % (Auto) 9.8 H, Eos % (Auto) 2.2, Ba
[2022-12-29 08:00] VITALS: BP 88/53; PULSE 81; RESP 18; O2SAT 95
--- NOTE | 2022-12-29 08:54 | PC.NURSE ---
COURTESY TECH NOTE; ROUNDED ON PT [id number], PT SITTING IN WHEELCHAIR IN HALLWAY, PT DENIED NEED FOR ASSISTANCE WITH RESTROOM OR NEED TO REPOSITION IN WHEELCHAIR, NO FURTHER REQUESTS AT THIS TIME Benjamín COFFEY, SRNA
--- NOTE | 2022-12-29 09:52 | HMH.OTEV ---
OT Inpatient Evaluation Rehab OT IP Evaluation Start: 12/28/22 15:18 Freq: ONCE Status: Active Protocol: Document 12/29/22 09:41 [facility] (Rec: 12/29/22 09:52 [facility] [id number]) Rehab OT IP Assessment Subjective History Pt oriented x 4 on arrival. Pt agreeable to engage in therapy evaluation. Pt admitted on 12/28/22 due to weakness, UTI, and encephalopathy. Prior to being in the hospital, pt has been living with his stepdaughter. Recently he has been requiring some assistance with ADLs such as lower body dressing and bathing. Pt is dependent upon his daughter to complete all IADLs. Pt does use a walker during functional transfers. Pt has a past medical history of : Chronic back pain CVA (cerebral vascular accident) Depression DM2 (diabetes mellitus, type 2 ) GERD (gastroesophageal reflux disease) Infected prosthetic knee joint Murmur Subjective I just want to be able to walk again. Objective Patient Orientation Person,Place,Birthday,Month Upper Extremity Gross ROM WFL Bed Mobility bed mobility-scooting,bed mobility - supine/sit,bed mobility - rolling Assist Level Supervision/Stand by Transfer Training Sit/Stand Transfer Assist Level Minimal x 1 (25% assist) Rehab OT IP prob,goals,plan Problems Date of Evaluation: 12/29/22 OT IP Problems Bed Mobility,Transfers,Balance ,Self care,Safety Rehab Potential Rehab Potential Good Equipment Needs Assistive Devices Rolling / Wheeled Walker Plan OT intervention Plan Bed Mobility,Transfers,Balance ,Self care,Safety,Therapeutic Exercise OT Plan Frequency BID Duration LOS Discharge Goals Bed Mobility Ability Sta
--- NOTE | 2022-12-29 10:42 | SW/DCPLANNER ---
Addendum entered by Noemi Ellis 01/01/23 11:14: Per [facility]/ [facility] this patient has been approved via insurance for SNF level of care. I have updated MD. Addendum entered by Noemi Ellis 12/29/22 12:44: Td infante/ [facility] stated that she can accept this patient pending insurance approval. Td also stated that she can accept this patient over the weekend if approved by [employer]. Original Note: I spoke with this patient regarding plans once medically stable for discharge. Patient stated that he resides at home w/ his daughter but does not feel safe to return home at this time. Patient stated that he has been to [facility] in the past and would prefer to return their once medically stable for discharge. PT/OT evaluated patient and recommended home w/ home health. I explained to patient that we can look into placement however insurance may not cover SNF level of care. Patient voiced that he understood. Patient information will be faxed to [facility] this AM. Patient is medically stable for discharge at this time.
--- NOTE | 2022-12-29 11:24 | HMH.PTEV ---
Physical Therapy Evaluation Rehab PT IP Evaluation Start: 12/28/22 15:18 Freq: ONCE Status: Active Protocol: Document 12/29/22 10:57 [facility] (Rec: 12/29/22 11:24 ADE [id number]) Subjective/History History History Pt is a 72 year old male that presented to [facility] ED on 2022 with reports of confusion and LLE weakness. Pt had a L knee surgery last fall that developed a chronic infection of the prosthesis. Pt is on chronic suppressive therapy and amoxicillin daily. Work-up in ED was positive for elevated liver enzymes, pt was also unable to ambulate. Medicine was consulted for admission and IP management. PMH: a-fib, HTN, hypothyroidism, L knee surgery , CVA, chronic back pain, DM2, diabetes, GERD Subjective Subjective Pt presents supine in bed, pleasant and agreeable to therapy initial evaluation. Pt denies reports of pain at rest. Pt reports L knee pain when standing/WBing. Pt reports that over the past month, he has had increasing LLE weakness and pain when walking. Pt reports that he has been using a walker at home and has been staying with his step-daughter due to difficulty walking and caring for himself over the past week . Pt performed bed mobility with supervision assistance, performed sit to stand transfer with min A x2 and the use of a RW. Pt ambulated x10 ' with min A x2 and the use of a RW. Pt demonstrated an antalgic gait with decreased weight bearing through LLE. Following evaluation, pt left supine in bed with call light and all needs within reach. Rehab PT IP Eval Objectiv
[2022-12-29 14:28] LABS: HBsAg Screen Negative (Negative); HCV Ab Non Reactive (Non Reactive); Hep A Ab, IGM Negative (Negative); Hep B Core Ab, IgM Negative (Negative)
[2022-12-29 16:00] VITALS: BP 107/59; PULSE 60; RESP 18; TEMP 36.7; O2SAT 95
[2022-12-29 17:55] LABS: POC Glucose,Bedside 117 (70-110)
[2022-12-29 20:00] VITALS: BP 116/50; PULSE 63; RESP 17; TEMP 36.6; O2SAT 92
--- NOTE | 2022-12-29 20:11 | PC.NURSE ---
gave oxycodone 5mg r/t pain 01/01. stated he hasn't had a pain pill since this morning.
[2022-12-29 20:12] LABS: POC Glucose,Bedside 131 (70-110)
--- NOTE | 2022-12-29 20:41 | PC.NURSE ---
pt took a bath - gave by jazmine pavon and reuben pavon
[2022-12-30 04:00] VITALS: BP 106/55; PULSE 60; RESP 16; TEMP 36.6; O2SAT 92; BMI 24.2
[2022-12-30 05:40] LABS: POC Glucose,Bedside 97 (70-110)
[2022-12-30 07:29] VITALS: BP 112/58; PULSE 61; RESP 17; TEMP 36.6; O2SAT 90
[2022-12-30 07:57] LABS: Alanine Aminotransferase 453 U/L (12-78); Alkaline Phosphatase 126 U/L (38-126); Anion Gap 7.3 mEq/L (5-15); Aspartate Amino Transferase 171 U/L (17-59); Bilirubin,Total 1.4 mg/dl (0.2-1.3); Blood Urea Nitrogen 39 mg/dl (9-20); Calcium 8.3 mg/dl (8.4-10.2); Carbon Dioxide 29 mmol/L (22.0-30.0); Chloride 104 mmol/L (98-107); Creatinine Clearance Estimated 55 mL/min (50-200); Estimated Glomerular Filt Rate 50 ml/min (>60); GFR (African American) 60 ML/MIN (>60); Globulin 2.9 g/dL (1.3-3.2); Glucose 101 mg/dl (74-100); Potassium 4.3 mmoL/L (3.5-5.1); Sodium 136 mmol/L (136-145); Total Protein,Serum 5.9 g/dl (6.3-8.2)
[2022-12-30 08:02] LABS: Basophils # 0.1 K/mm3 (0-0.2); Basophils % 0.7 % (0.1-2.0); Eosinophils # 0.1 K/mm3 (0.0-0.4); Eosinophils % 1.7 % (0.1-12.0); Hematocrit 38.1 % (42.0-52.0); Hemoglobin 11.7 g/dL (14.1-18.0); Lymphocytes # 1.3 K/mm3 (0.7-4.5); Lymphocytes % 16.6 % (10-50); Mean Corpuscular HGB Conc 30.8 g/dL (31.8-35.4); Mean Corpuscular Hemoglobin 26.7 pg (27.0-31.2); Mean Corpuscular Volume 86.6 fl (80-94); Mean Platelet Volume 7.9 fl (7.4-10.4); Monocytes # 0.7 K/mm3 (0.1-1.0); Monocytes % 9.6 % (1.7-9.3); Neutrophils # 5.5 K/mm3 (1.8-7.8); Neutrophils % 71.5 % (37.0-80.0); Platelet Count 387 K/mm3 (142-424); Red Cell Distribution Width 16.2 % (11.5-17.5); White Blood Count 7.7 K/mm3 (4.8-10.8)
--- NOTE | 2022-12-30 08:13 | EXP.ACUTE.PN ---
Subjective *Date: 12/30/22 *Time: 08:37 Interval history: Overnight, left foot noted to be cooler. Knee brace on too tight, loosened with improvement. Pulses palpable on exam this morning. Discussed with patient that we will need to take the brace off at night and he cannot wear it continuously. He stated it is hard to put on but he understood. We will assist with putting it on. Otherwise no complaints. No confusion. Alert and oriented x4. Ate breakfast this morning. No chest pain or shortness of breath Medical Exam Vital signs and Labs for Last 24 Hours: Vital Signs Temp Pulse Resp BP Pulse Ox O2 Del Method 12/30/22 07:29 97.9 F 61 17 112/58 L 90 L Room Air 12/30/22 04:00 97.9 F 60 16 106/55 L 92 L Room Air 12/30/22 06:03 Room Air 12/30/22 04:40 Room Air 12/30/22 03:00 Room Air 12/30/22 01:00 Room Air 12/29/22 22:49 Room Air 12/29/22 20:44 Room Air 12/29/22 20:00 97.9 F 63 17 116/50 L 92 L Room Air 12/29/22 19:40 Room Air 12/29/22 18:25 Room Air 12/29/22 17:00 Room Air 12/29/22 16:00 98.0 F 60 18 107/59 L 95 Room Air 12/29/22 15:00 Room Air 12/29/22 13:00 Room Air 12/29/22 11:00 Room Air 12/29/22 09:00 Room Air Intake and Output 12/29/22 12/30/22 12/30/22 23:59 07:59 15:59 Intake Total 600 / 980 660 / 660 Output Total 275 / 275 Balance 325 / 705 660 / 660 Intake: Intake, Oral Amount 600 / 960 660 / 660 Output: Output, Urine Amount 275 / 275 Other: Weight 82.962 kg Patient Weight 12/30/22 23:59 Weight 82.962 kg Laboratory Results - last 24 hr 12/28/22 09:40: Hepatitis A IgM Ab Negative, Hep Bs Antigen Negative, Hep B Core IgM Ab Negative, Hepatitis C Antibody Non reactive 12/29/22 17:43: POC Glucose 117 H 12/29/22 20:01: POC Glucose 131 H 12/30/22 05:32: POC Glucose 97 12/30/22 07:02: WBC 7.7, RBC 4.40 L, Hgb 11.7 L, Hct 38.1 L, MCV 86.6, MCH 26.7 L, MCHC 30.8 L, RDW 16.2, Plt Count 387, MPV 7.9, Neut % (Auto) 71.5, Lymph % (Auto) 16.6, [place] % (Auto) 9.6 H, Eos % (Auto) 1.7, Baso % (Auto) 0.7, Neut # (Auto) 5.5, Lymph # (Auto) 1.3, [place] # (Auto) 0.7, Eos # (Auto) 0.1, Baso # (Auto) 0.1, Sodium 136, Potassium 4.3, Chloride 104, Carbon Dioxide 29, Anion Gap 7.3, BUN 39 H D, Creatinine 1.40 H, Estimated Creat Clear 55, Estimated GFR 50 L, Est GFR ( Amer) 60, Glucose 101 H, Calcium 8.3 L, Total Bilirubin 1.4 H, AST 171 H, ALT 453 H*, Alkaline Phosphatase 126, Total Protein 5.9 L, Albumin 3.0 L, Globulin 2.9, Albumin/Globulin Ratio 1.0 L I & O for Labs for Last 24 Hours: Intake & Output 12/27/22 12/28/22 12/29/22 12/30/22 23:59 23:59 23:59 23:59 Intake Total 920 / 980 660 / 660 Output Total 200 / 200 275 / 275 Balance -200 / -120 645 / 705 660 / 660 Weight 81.335 kg 81.76 kg 82.962 kg Microbiology Reports for the Last 24 Hours: Microbiology 12/28/22 09:49 Urine,Clean Catch Urine Culture - Preliminary NO GROWTH AFTER 24 HOURS Constitutional: Present no acute distress, average body habitus and chronically ill appearing Head: Present atraumatic and normocephalic ENT: Present normal exam Respiratory: Present normal respiratory effort; Absent rhonchi, wheezes or crackles Cardiac: Present Reg Rate and Rhythm GI: Present soft and normal bowel sounds; Absent distention or tenderness Comment:: Left leg with lateral deviation distal to knee. Chronic dislocation of left patella. Improved movement of left leg today. Still some pain with movement but improved; left foot cool but not painful or cold. No pallor. Pulses weak but palpable. Skin: Present intact; Absent erythema Neuro: Present Grossly Intact, alert, awake, oriented x 3 and moves all extremities Assessment and Plan *Assessment and plan (1) Weakness: Status: Acute Category: Medical Code(s): R53.1 - Weakness (2) UTI (urinary tract infection): Status
--- NOTE | 2022-12-30 08:30 | PC.NURSE ---
pt was advised that he really needed to use the bedside commode, with help of staff. patient refused and requested to use bed sarkar. charge nurse notified.
[2022-12-30 11:17] VITALS: BP 129/58; PULSE 61; RESP 17; TEMP 36.7; O2SAT 94
[2022-12-30 11:43] LABS: POC Glucose,Bedside 119 (70-110)
[2022-12-30 15:24] VITALS: BP 130/56; PULSE 62; RESP 17; TEMP 36.6; O2SAT 95
[2022-12-30 17:04] LABS: POC Glucose,Bedside 128 (70-110)
--- NOTE | 2022-12-30 18:19 | PC.NURSE ---
Patient continuing IV antibiotics; vital signs stable and ambulating around room.
[2022-12-30 19:33] VITALS: BP 114/49; PULSE 60; RESP 18; TEMP 36.7; O2SAT 96
[2022-12-30 20:12] LABS: POC Glucose,Bedside 148 (70-110)
--- NOTE | 2022-12-30 20:28 | PC.NURSE ---
refused a bath r/t having one last night. stated he only bathes q2days
--- NOTE | 2022-12-30 21:12 | PC.NURSE ---
pt stated sudhakar brought in home meds today. I went through, no narcs. Put all meds in the sanforizing machine operator pt room, and locked drawer. Will pass onto dayshift
[2022-12-31 04:00] VITALS: BP 100/53; PULSE 63; RESP 22; TEMP 36.5; O2SAT 96; BMI 25.0
[2022-12-31 05:42] LABS: POC Glucose,Bedside 115 (70-110)
--- NOTE | 2022-12-31 07:36 | EXP.ACUTE.PN ---
Subjective *Date: 12/31/22 *Time: 10:13 Interval history: Patient complaining of some mild left knee pain today. Otherwise stable. Tolerating breakfast on morning exam. Stable on room air. Medical Exam Vital signs and Labs for Last 24 Hours: Vital Signs Temp Pulse Resp BP Pulse Ox O2 Del Method 12/31/22 04:00 97.7 F 63 22 100/53 L 96 Room Air 12/30/22 22:43 Room Air 12/31/22 06:30 Room Air 12/31/22 05:00 Room Air 12/31/22 03:00 Room Air 12/31/22 01:00 Room Air 12/30/22 20:20 Room Air 12/30/22 19:54 Room Air 12/30/22 19:33 98.1 F 60 18 114/49 L 96 Room Air 12/30/22 15:00 Room Air 12/30/22 15:24 97.9 F 62 17 130/56 L 95 Room Air 12/30/22 11:17 98.0 F 61 17 129/58 L 94 L Room Air 12/30/22 09:00 Room Air Intake and Output 12/30/22 12/30/22 12/31/22 15:59 23:59 07:59 Intake Total 240 / 1270 370 / 1270 Output Total 200 / 450 250 / 250 Balance 40 / 820 370 / 820 -250 / -250 Intake: Intake, Oral Amount 240 / 1260 360 / 1260 Intake, Other Amount 10 / 10 Output: Output, Urine Amount 200 / 450 250 / 250 Other: Intake, Other Source Saline Solution Number of Unmeasured Voids 0 Number of Bowel Movements 1 Weight 85.684 kg Patient Weight 12/31/22 23:59 Weight 85.684 kg Laboratory Results - last 24 hr 12/30/22 07:02: WBC 7.7, RBC 4.40 L, Hgb 11.7 L, Hct 38.1 L, MCV 86.6, MCH 26.7 L, MCHC 30.8 L, RDW 16.2, Plt Count 387, MPV 7.9, Neut % (Auto) 71.5, Lymph % (Auto) 16.6, [place] % (Auto) 9.6 H, Eos % (Auto) 1.7, Baso % (Auto) 0.7, Neut # (Auto) 5.5, Lymph # (Auto) 1.3, [place] # (Auto) 0.7, Eos # (Auto) 0.1, Baso # (Auto) 0.1, Sodium 136, Potassium 4.3, Chloride 104, Carbon Dioxide 29, Anion Gap 7.3, BUN 39 H D, Creatinine 1.40 H, Estimated Creat Clear 55, Estimated GFR 50 L, Est GFR ( Amer) 60, Glucose 101 H, Calcium 8.3 L, Total Bilirubin 1.4 H, AST 171 H, ALT 453 H*, Alkaline Phosphatase 126, Total Protein 5.9 L, Albumin 3.0 L, Globulin 2.9, Albumin/Globulin Ratio 1.0 L 12/30/22 11:36: POC Glucose 119 H 12/30/22 16:57: POC Glucose 128 H 12/30/22 20:03: POC Glucose 148 H 12/31/22 05:34: POC Glucose 115 H I & O for Labs for Last 24 Hours: Intake & Output 12/28/22 12/29/22 12/30/22 12/31/22 23:59 23:59 23:59 23:59 Intake Total 920 / 980 1270 / 1270 Output Total 200 / 200 275 / 275 200 / 450 250 / 250 Balance -200 / -120 645 / 705 1070 / 820 -250 / -250 Weight 81.335 kg 81.76 kg 82.962 kg 85.684 kg Microbiology Reports for the Last 24 Hours: Microbiology 12/28/22 09:49 Urine,Clean Catch Urine Culture - Final NO GROWTH AFTER 48 HOURS Constitutional: Present no acute distress, average body habitus and chronically ill appearing Head: Present atraumatic and normocephalic ENT: Present normal exam Respiratory: Present normal respiratory effort; Absent rhonchi, wheezes or crackles Cardiac: Present Reg Rate and Rhythm GI: Present soft and normal bowel sounds; Absent distention or tenderness Comment:: Chronic dislocation left patella. Improved flexion at knee. Skin: Present intact; Absent erythema Neuro: Present Grossly Intact, alert, awake, oriented x 3 and moves all extremities Assessment and Plan *Assessment and plan (1) Weakness: Status: Acute Category: Medical Code(s): R53.1 - Weakness (2) DM (diabetes mellitus): Status: Chronic Qualifiers: Diabetes mellitus complication status: without complication Diabetes mellitus apartment maintenance supervisor insulin use: without residential use Diabetes mellitus type: type 2 Qualified Code(s): E11.9 - Type 2 diabetes mellitus without complications Category: Medical Code(s): E11.9 - Type 2 diabetes mellitus without complications (3) HLD (hyperlipidemia): Status: Chronic Qualifiers: Hyperlipidemia type: other hyperlipidemia Qualified Code(s): E78.4 - Other hyperlipidemia
[2022-12-31 08:00] VITALS: BP 112/61; PULSE 60; RESP 16; TEMP 36.4; O2SAT 94
[2022-12-31 09:31] LABS: Alanine Aminotransferase 333 U/L (12-78); Albumin Level 2.9 g/dl (3.5-5.0); Alkaline Phosphatase 137 U/L (38-126); Anion Gap 8.2 mEq/L (5-15); Aspartate Amino Transferase 115 U/L (17-59); Bilirubin,Total 0.9 mg/dl (0.2-1.3); Blood Urea Nitrogen 34 mg/dl (9-20); Calcium 8.1 mg/dl (8.4-10.2); Carbon Dioxide 27 mmol/L (22.0-30.0); Chloride 104 mmol/L (98-107); Creatinine Clearance Estimated 66 mL/min (50-200); Estimated Glomerular Filt Rate 59 ml/min (>60); GFR (African American) 72 ML/MIN (>60); Globulin 2.8 g/dL (1.3-3.2); Glucose 131 mg/dl (74-100); Potassium 4.2 mmoL/L (3.5-5.1); Sodium 135 mmol/L (136-145); Total Protein,Serum 5.7 g/dl (6.3-8.2)
[2022-12-31 10:48] VITALS: BMI 25.0
[2022-12-31 11:45] LABS: POC Glucose,Bedside 134 (70-110)
[2022-12-31 16:00] VITALS: BP 119/53; PULSE 65; RESP 18; TEMP 36.6; O2SAT 94
[2022-12-31 17:28] LABS: POC Glucose,Bedside 125 (70-110)
--- NOTE | 2022-12-31 17:43 | PC.NURSE ---
PT IS RESTING IN BED. ALERT AND ORIENTED X4. PT TOLERATED SITTING UP IN THE CHAIR FOR A FEW HOURS THIS SHIFT. 2 ASSIST FOR TRANSFERS. EATING AND DRINKING WELL. SWELLING NOTED TO THE LEFT KNEE. MEDICATED PER MAR FOR DISCOMFORT. WILL CONTINUE TO MONITOR.
--- NOTE | 2022-12-31 19:17 | PC.NURSE ---
PER PT REPORT: pt stated he request a bath today, but didn't receive one. Informed day shift and alcoholism worker aides during handoff report, alcoholism worker aides stated they would give pt a bath tonight.
[2022-12-31 20:00] VITALS: BP 124/63; PULSE 60; RESP 17; TEMP 36.5; O2SAT 93
--- NOTE | 2022-12-31 22:45 | PC.NURSE ---
pt was bathed tonight by aides.
[2023-01-01 03:55] VITALS: BP 122/62; PULSE 60; RESP 16; TEMP 36.4; O2SAT 93; BMI 25.1
[2023-01-01 07:52] VITALS: BP 115/59; PULSE 64; RESP 18; TEMP 36.4; O2SAT 94
--- NOTE | 2023-01-01 10:35 | EXP.ACUTE.PN ---
Subjective *Date: 01/01/23 *Time: 12:54 Interval history: Stable overnight no acute events. Continues to have knee pain. Working with therapy. Tolerating p.o. intake. Medical Exam Vital signs and Labs for Last 24 Hours: Vital Signs Temp Pulse Resp BP Pulse Ox O2 Del Method 01/01/23 08:00 Room Air 01/01/23 07:52 97.6 F 64 18 115/59 L 94 L Room Air 01/01/23 06:23 Room Air 01/01/23 03:55 97.6 F 60 16 122/62 93 L Room Air 01/01/23 04:31 Room Air 01/01/23 03:00 Room Air 01/01/23 00:44 Room Air 12/31/22 23:00 Room Air 12/31/22 20:53 Room Air 12/31/22 20:00 97.7 F 60 17 124/63 93 L Room Air 12/31/22 19:40 Room Air 12/31/22 18:16 Room Air 12/31/22 17:00 Room Air 12/31/22 16:00 97.9 F 65 18 119/53 L 94 L Room Air 12/31/22 15:00 Room Air 12/31/22 12:44 Room Air 12/31/22 11:00 Room Air Intake and Output 12/31/22 01/01/23 01/01/23 23:59 07:59 15:59 Intake Total 730 / 1210 1020 / 1020 Output Total 400 / 950 225 / 475 250 / 475 Balance 330 / 260 795 / 545 -250 / 545 Intake: Intake, Oral Amount 720 / 1200 1020 / 1020 Intake, Other Amount Output: Output, Urine Amount 400 / 950 225 / 475 250 / 475 Other: Intake, Other Source Saline Solution Number of Unmeasured Voids 1 1 Weight 85.956 kg Patient Weight 01/01/23 23:59 Weight 85.956 kg Laboratory Results - last 24 hr 12/31/22 11:39: POC Glucose 134 H 12/31/22 17:21: POC Glucose 125 H I & O for Labs for Last 24 Hours: Intake & Output 12/29/22 12/30/22 12/31/22 01/01/23 23:59 23:59 23:59 23:59 Intake Total 920 / 980 1270 / 1270 1210 / 1210 1020 / 1020 Output Total 275 / 275 200 / 450 950 / 950 475 / 475 Balance 645 / 705 1070 / 820 260 / 260 545 / 545 Weight 81.76 kg 82.962 kg 85.68 kg 85.956 kg Constitutional: Present no acute distress, average body habitus and chronically ill appearing Head: Present atraumatic and normocephalic ENT: Present normal exam Respiratory: Present normal respiratory effort; Absent rhonchi, wheezes or crackles Cardiac: Present Reg Rate and Rhythm GI: Present soft and normal bowel sounds; Absent distention or tenderness Comment:: Chronic dislocation left patella. Able to flex left knee. Skin: Present intact; Absent erythema Neuro: Present Grossly Intact, alert, awake, oriented x 3 and moves all extremities Assessment and Plan *Assessment and plan (1) Weakness: Status: Acute Category: Medical Code(s): R53.1 - Weakness (2) DM (diabetes mellitus): Status: Chronic Qualifiers: Diabetes mellitus complication status: without complication Diabetes mellitus penitentiary insulin use: without superintendent terminal use Diabetes mellitus type: type 2 Qualified Code(s): E11.9 - Type 2 diabetes mellitus without complications Category: Medical Code(s): E11.9 - Type 2 diabetes mellitus without complications (3) HLD (hyperlipidemia): Status: Chronic Qualifiers: Hyperlipidemia type: other hyperlipidemia Qualified Code(s): E78.4 - Other hyperlipidemia Category: Medical Code(s): E78.5 - Hyperlipidemia, unspecified (4) Chronic antibiotic suppression: Status: Chronic Category: Medical Code(s): Z79.2 - MCFP (current) use of antibiotics (5) HTN (hypertension): Status: Chronic Qualifiers: Hypertension type: essential hypertension Qualified Code(s): I10 - Essential (primary) hypertension Category: Medical Code(s): I10 - Essential (primary) hypertension (6) Cirrhosis: Status: Acute Qualifiers: Ascites presence: without ascites Hepatic cirrhosis type: unspecified hepatic cirrhosis Qualified Code(s): K74.60 - Unspecified cirrhosis of liver Category: Medical Code(s): K74.60 - Unspecified cirrhosis of liver Plan 72-year-old male with history of left T
--- NOTE | 2023-01-01 12:10 | PC.NURSE ---
EDITING COMPUTER PUBLISHER Note: pt ambulated with assist x2 to chair. pt has been placed comfortably.
--- NOTE | 2023-01-01 12:54 | EXP.DC.SUM ---
General Admission date:: 12/28/22 Discharge date: 01/01/23 HPI HPI HPI: Mr. Hardwick is a 72-year-old male with history of A-fib, hypertension, hypothyroidism. Left knee replaced fall of last year. 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 He is on chronic suppressive therapy with amoxicillin daily. He presented to the ER today with his daughter who helps give history. Concern for encephalopathy and worsening weakness. He has been confused for the past few days. He even noted that he was confused per report from family and documentation. His weakness has progressed over the past few weeks and he has had difficulty walking over that timeframe. Left side is his main source of weakness. Denies any acute trauma. No acute changes. No upper extremity weakness. No chest pain, cough, shortness of breath, nausea, vomiting, diarrhea. No known history of cirrhosis. No falls and trauma. Work-up in the ER positive for elevated liver enzymes. Urinalysis abnormal. Patient unable to walk. ER consulted medicine for admission given unexplained elevation in liver enzymes, weakness, confusion on exam. After arrival to the floor, patient is back to baseline mentation. Alert and oriented x4. Complaining of weakness in his left leg. Stable on room air. No nausea or vomiting. Denies any abdominal pain. Reports surgery with knee replacement was performed at . Has been seeing family medicine and orthopedics (Dr. Fu) at . Currently taking amoxicillin daily for suppressive therapy. Hospital Course Hospital Course Hospital Course: 72-year-old male with history of left TKA in February performed at . Reportedly tolerated procedure well but developed chronic infection. On amoxicillin daily. Has been having worsening pain in left knee. Weakness and unable to walk for the past 3 to 4 weeks prior to admission. Mentation improved within 12 hours of admission. Patient has been working with therapy daily, not stable to go home. Needs continued therapy. Has been graciously accepted by [facility] for rehab. Problems addressed as follows: Weakness -Initially showing some mild confusion. Improved to baseline within first 12 to 24 hours of admission. Patient is alert and oriented x4. He has been seeing Dr. Fu at , concerned that there is no further treatment for his knee. Discussed case with orthopedics at [facility], recommended he might consider a second opinion. There is no viable orthopedic intervention that can be performed at our facility. Patient would need referral to a revision joint surgeon. Discussed options with orthopedics at [facility]. Gave recommendations of Dr. Soto with [facility] orthopedics or Dr. Frederick at [facility]. PT and OT evaluated, patient needing assistance to ambulate. Would benefit from skilled rehab. Brace for left knee placed to help keep patella centered. Recommend continued use of brace during the day while he is ambulating. Do not keep on for 24 hours. Remove at night please Chronic joint infection Chronic suppressive antibiotics -Pain stable with oxycodone. Avoiding Tylenol due to mild liver injury on presentation. Avoiding NSAIDs due to concurrent use of Eliquis. Continue chronic amoxicillin 875 mg twice daily for suppression of osteomyelitis. Initially concern for UTI on presentation, urine had no growth however. No IV antibiotics at discharge. Diabetes: Continue metformin 500 mg twice daily Myocardial bridge Hypertension -Maintaining good control of heart rate. Continue home home diltiazem 180 mg daily, metoprolol to 100 mg twice daily. Eliquis 5 mill grams twice daily, aspirin 81 mg daily. Stopped amiodarone due to hepatitis/liver injury. Held his Lipitor as well due to liver injury and elevated liver enzymes. Recommend holding these medications indefinitely. Hepatitis Cirrhosis, diagnosed
--- NOTE | 2023-01-01 13:17 | PC.NURSE ---
report called to [facility].
== END 2023-01-01 13:55 ==
LOC: ER 10:39 → 2ND 12:39
PROVIDERS: Admitting Provider Internal Medicine Adolescent Medicine; Emergency Provider Student in an Organized Health Care Education/Training Program; Visit Provider Internal Medicine Adolescent Medicine
DX: G93.40 Encephalopathy, unspecified (principal); T84.023A Instability of internal left knee prosthesis, initial encounter; R53.1 Weakness; N39.0 Urinary tract infection, site not specified; Z79.899 Other long term (current) drug therapy; E11.9 Type 2 diabetes mellitus without complications; I10 Essential (primary) hypertension; K74.60 Unspecified cirrhosis of liver; Z79.84 Long term (current) use of oral hypoglycemic drugs; Z79.2 Long term (current) use of antibiotics
CPT/HCPCS: 36415; 70450; 70496; 70498; 71046; 73562; 76705; 80053; 80074; 81001; 82140; 82962; 83036; 83735; 84443; 84484; 85025; 85610; 85730; 87086; 87636; 93005; 97110; 97162; 97166; 97530; 97760; 99285; G0378; J0696; Q9967

== ENCOUNTER 2023-07-05 20:23 | Emergency (ER) | payer MEDICARE, SELFPAY ==
--- NOTE | 2023-07-05 20:07 | ECG_ITS ---
APPROVED REPORT Exam: Resting ECG HR:65 bpm ECG Measurements Heart Rate 65 AXES WV 134 P 56 QRSd 89 QRS 78 QT 438 T 253 QTc [address] DEVIATION AND MODERATE T-WAVE ABNORMALITY, CONSIDER ANTERIOR ISCHEMIA [-0.1+ mV T-WAVE IN V3/V4] ST DEVIATION AND MODERATE T-WAVE ABNORMALITY, CONSIDER INFERIOR ISCHEMIA [-0.1+ mV T-WAVE IN II/aVF] ABNORMAL ECG UNCONFIRMED REPORT Electronically signed by : Alin Clemente MD 07/06/2023 12:07:10
[2023-07-05 20:24] VITALS: BP 142/69; PULSE 73; RESP 19; TEMP 36.5; O2SAT 97; BMI 24.4
--- NOTE | 2023-07-05 20:26 | XR_ITS ---
PROCEDURE INFORMATION: Exam: XR Chest Exam date and time: 07/05/2023 8:27 PM Age: 72 years old Clinical indication: Pain; Chest pressure; Additional info: Chest pain TECHNIQUE: Imaging protocol: Radiologic exam of the chest. Views: 1 view. COMPARISON: CR XR CHEST 2V 12/28/2022 8:39 AM FINDINGS: Tubes, catheters and devices: Stable pacemaker. Lungs: Unremarkable. No consolidation. Pleural spaces: Unremarkable. No pleural effusion. No pneumothorax. Heart/Mediastinum: Unremarkable. No cardiomegaly. Bones/joints: Unremarkable. IMPRESSION: No acute findings.
[2023-07-05 20:34] LABS: Basophils # 0.1 K/mm3 (0-0.2); Basophils % 0.6 % (0.1-2.0); Eosinophils # 0.1 K/mm3 (0.0-0.4); Eosinophils % 0.7 % (0.1-12.0); Hematocrit 40.9 % (42.0-52.0); Hemoglobin 12.4 g/dL (14.1-18.0); Lymphocytes # 1.5 K/mm3 (0.7-4.5); Lymphocytes % 19.6 % (10-50); Mean Corpuscular HGB Conc 30.4 g/dL (31.8-35.4); Mean Corpuscular Volume 82.2 fl (80-94); Mean Platelet Volume 7.7 fl (7.4-10.4); Monocytes # 0.6 K/mm3 (0.1-1.0); Monocytes % 7.8 % (1.7-9.3); Neutrophils # 5.5 K/mm3 (1.8-7.8); Neutrophils % 71.3 % (37.0-80.0); Platelet Count 323 K/mm3 (142-424); Red Blood Count 4.98 M/mm3 (4.60-6.20); Red Cell Distribution Width 19.4 % (11.5-17.5); White Blood Count 7.8 K/mm3 (4.8-10.8)
[2023-07-05 20:44] LABS: Chloride 109 mmol/L (98-107); Potassium 3.2 mmoL/L (3.5-5.1); Sodium 141 mmol/L (136-145)
[2023-07-05 20:47] LABS: Alanine Aminotransferase 315 U/L (12-78); Albumin Level 3.6 g/dl (3.5-5.0); Albumin/Globulin Ratio 1.1 (1.1-1.8); Alkaline Phosphatase 92 U/L (38-126); Anion Gap 10.2 mEq/L (5-15); Aspartate Amino Transferase 104 U/L (17-59); Bilirubin,Total 0.7 mg/dl (0.2-1.3); Blood Urea Nitrogen 19 mg/dl (9-20); Calcium 8.7 mg/dl (8.4-10.2); Carbon Dioxide 25 mmol/L (22.0-30.0); Creatinine Clearance Estimated 60 mL/min (50-200); Estimated Glomerular Filt Rate 54 ml/min (>60); GFR (African American) 65 ML/MIN (>60); Globulin 3.2 g/dL (1.3-3.2); Glucose 142 mg/dl (74-100); Total Protein,Serum 6.8 g/dl (6.3-8.2)
[2023-07-05] MEDS: ASPIRIN 81MG CHEWABLE TABLET 324 MG PO (20:50)
[2023-07-05] MEDS: KETOROLAC 30MG/ML VIAL 15 MG IV (20:51)
[2023-07-05] MEDS: ONDANSETRON 4MG/2ML VIAL 4 MG IV (20:51)
[2023-07-05 21:23] LABS: Troponin I < 0.01 ng/ml (0.00-0.034)
[2023-07-05] MEDS: LACTATED RINGERS 1000ML 1,000 ML 999 ML IV (21:59)
[2023-07-05] MEDS: POTASSIUM CHLORIDE 20MEQ TAB 60 MEQ PO (21:59)
--- NOTE | 2023-07-05 22:16 | ED_ITS ---
Discharge Plan Disposition Patient Disposition: Home, Self-Care Condition: Good Prescriptions Prescriptions: No Action cyclobenzaprine 10 mg tablet 10 mg PO HS gabapentin [Neurontin] 600 mg tablet 600 mg PO TID metformin 500 mg tablet 500 mg PO BID buspirone 10 mg tablet 10 mg PO DAILY PRN (Reason: anxiety) Qty: 30 5RF diltiazem HCl 180 mg capsule,extended release 24hr 180 mg PO DAILY Patient Comments: TAKE 1 CAPSULE BY MOUTH EVERY DAY omeprazole 40 mg capsule,delayed release(DR/EC) 40 mg PO BID fluticasone propionate 50 mcg/actuation spray,suspension 2 spray INTRANASAL DAILY Patient Comments: INSTILL 2 SPRAYS IN EACH NOSTRL EVERY DAY loratadine 10 mg tablet 10 mg PO DAILY Patient Comments: TAKE 1 TABLET BY MOUTH DAILY Eliquis 5 mg tablet 5 mg PO BID Patient Comments: TAKE 1 TABLET BY MOUTH TWICE DAILY aspirin [Adult Low Dose Aspirin] 81 mg tablet,delayed release (DR/EC) 81 mg PO DAILY baclofen 5 mg tablet 5 mg PO TID PRN (Reason: muscle spasms) Rx Instructions: for 7 days supply started 12/23/22 amoxicillin 875 mg tablet 875 mg PO BID metoprolol succinate 100 mg Tablet Extended Release 24 Hr 100 mg PO BID 30 Days Qty: 60 0RF oxycodone-acetaminophen 5-325 mg tablet 1 tab PO TIDP PRN (Reason: moderate to severe pain) 3 Days Qty: 9 0RF Patient Comments: TAKE 1 TABLET BY MOUTH EVERY NIGHT Referrals Follow up/Referrals: Provider,Referral, MD [Primary Care Provider] - See instructions Activity Restrictions/Add. Instructions Additional Instructions/Restrictions: Call your family doctor to establish [facility] and schedule follow-up within 48 hours to ensure improvement. If you have any worsening of your condition or any other concerning signs or symptoms, return to the emergency department or your primary care doctor for further evaluation. Clinical Impressions Clinical Impression: Chest pain Discharge ED Provider: Claudio Turk <Claudio Turk MD - Last Filed: 07/06/23 00:00> General Chief Complaint: Chest Pain Stated Complaint: Chest Pain Time Seen by Provider: 07/05/23 20:26 Mode of Arrival: EMS Source of Information: Patient Limitations: Physical Limitations Description of Symptoms (Recalled from ER Triage Doc. by RN): Patient reports CP starting approximately 3pm today, accompanied by central abdominal pain and cr amping that has been ongoing for 2 days. Patient additionally endorses headache to the back of head at this time. Patient states he has had diarrhea for 2 days. Denies sick contacts, denies nausea and vomiting. History of Present Illness HPI narrative: 72-year-old male history of hypertension, hyperlipidemia, diabetes, hepatitis presenting with chest pain. Started about 3 PM today. Radiates through to his left shoulder. Associated shortness of breath and neck pain. Denies nausea or vomiting, fevers or chills, shortness of breath, diaphoresis,, but has had intermittent abdominal pains. Denies any recent daily drinking, smoking, or any other concerns. Related Data Home Medications Medication Instructions Recorded Confirmed cyclobenzaprine 10 mg tablet 10 mg PO HS muscle spasms 09/06/17 12/28/22 gabapentin 600 mg tablet 600 mg PO TID Pain 09/06/17 12/28/22 (Neurontin) metformin 500 mg tablet 500 mg PO BID Diabetes 11/05/18 12/28/22 amoxicillin 875 mg tablet 875 mg PO BID Antibiotic 12/28/22 12/28/22 apixaban 5 mg tablet (Eliquis) 5 mg PO BID Blood Thinner/Coronary 12/28/22 12/28/22 Myocardial Bridge aspirin 81 mg tablet,delayed 81 mg PO DAILY Heart Disease 12/28/22 12/28/22 release (Adult Low Dose Aspirin) baclofen 5 mg tablet 5 mg PO TID PRN muscle spasms 12/28/22 12/28/22 diltiazem HCl 180 mg 180 mg PO DAILY high blood 12/28/22 12/28/22 capsule,extended release 24 hr pressure/heart rate fluticasone propionate 50 2 spray intranasal DAILY Allergy 12/28/22 12/28/22 mcg/actuation nasal Symptoms spray,suspension loratadine 10 mg tablet 10 mg PO DAILY Allergy Symptoms 12/28/22 12/28/22 omeprazole 40 mg capsule,delayed 40 mg PO BID Acid Reflux 12/28/22 12/28/22 release Previous Rx's Medication Instructions Recorded buspirone 10 mg tablet 10 mg PO DAILY PRN anxiety #30 tabs 02/12/19 metoprolol succinate 100 mg 100 mg PO BID 30 days #60 tabs 01/01/23 tablet,extended release 24 hr oxycodone-acetaminophen 5 mg-325 1 tab PO TIDP PRN moderate to 01/01/23 mg tablet severe pain 3 days #9 tabs Allergies Allergy/AdvReac Type Severity Reaction Status Date / Time hydrocodone [HYDROCODONE] Allergy Unknown ITCHING Verified 12/08/20 15:53 streptomycin [STREPTOMYCIN] Allergy Unknown ITCHING Verified 12/08/20 15:53 PFSH <Claudio Turk MD - Last Filed: 07/06/23 00:00> [facility] Disclaimer: The information contained in this section may have been updated after the patient was seen, as this information can be updated by other users. Medical History Chronic back pain CVA (cerebral vascular accident) Depression DM2 (diabetes mellitus, type 2) GERD (gastroesophageal reflux disease) Infected prosthetic knee joint Murmur Surgical History H/O cardiac catheterization H/O colonoscopy H/O wrist surgery History of left knee replacement Family History Family history of cancer in mother FH: heart attack Family history of early CAD Social History Smoking Status: Never smoker alcohol intake: never substance use type: denies use current occupational status: retired Travel in the last 8 weeks: None household members: spouse <Claudio Turk MD - Last Filed: 07/06/23 00:00> ROS Obtained: Yes All systems reviewed & no additional complaints except as documented Physical Exam <Claudio Turk MD - Last Filed: 07/06/23 00:00> General General appearance: alert and other (Disheveled, unkempt) Neck Neck exam: Present trachea midline Chest Chest inspection: Present normal inspection and symmetric chest wall rise Respiratory Respiratory exam: Present normal lung sounds bilaterally; Absent respiratory distress, wheezes, stridor, accessory muscle use or prolonged expiratory phase Cardiovascular Cardiovascular exam: Present regular rate and normal rhythm Extremities Exam Extremities exam: Absent edema Neurological Exam Neurological exam: Present alert, oriented X3 and CN II-XII intact Skin Skin exam: Present warm and dry; Absent cyanosis, diaphoresis or pallor HEART Score <Claudio Turk MD - Last Filed: 07/06/23 00:00> HEART Score HEART Score assessment performed?: Yes History (anamnesis): Slightly suspicious ECG: Normal Age: >65 years Risk factors: 3 or more risk factors Troponin: </= normal limit HEART Score: 4 <Tiesha CraneDO - Last Filed: 07/06/23 01:18> HEART Score HEART Score: 4 Critical Care <Claudio Turk MD - Last Filed: 07/06/23 00:00> Critical Care Time Critical Care Time: No Medical Decision Making <Claudio Turk MD - Last Filed: 07/06/23 00:00> Medical Records Medical records reviewed: Yes I reviewed the patient's medical records. [place] Inquiry Pt receiving controlled substance: No [place] was queried for this patient: No Vital Signs Vital Signs: 07/05/23 20:24 Temperature 97.7 F Temperature Source Oral Pulse Rate [Left Radial] 73 Respiratory Rate 19 Blood Pressure [Right Arm] 142/69 H Blood Pressure Mean [Right Arm] 93 Blood Pressure Source [Right Arm] Automatic Cuff Blood Pressure Position [Right Arm] Supine 02 Sat by Pulse Oximetry 97 Oxygen Delivery Method Room Air Lab Data Labs: Lab Results 07/05/23 20:15: WBC 7.8, RBC 4.98, Hgb 12.4 L, Hct 40.9 L, MCV 82.2, MCH 25.0 L, MCHC 30.4 L, RDW 19.4 H, Plt Count 323, MPV 7.7, Neut % (Auto) 71.3, Lymph % (Auto) 19.6, [place] % (Auto) 7.8, Eos % (Auto) 0.7, Baso % (Auto) 0.6, Neut # (Auto) 5.5, Lymph # (Auto) 1.5, [place] # (Auto) 0.6, Eos # (Auto) 0.1, Baso # (Auto) 0.1, Sodium 141, Potassium 3.2 L, Chloride 109 H, Carbon Dioxide 25, Anion Gap 10.2, BUN 19, Creatinine 1.30 H, Estimated Creat Clear 60, Estimated GFR 54 L, Est GFR ( Amer) 65, Glucose 142 H, Calcium 8.7, Total Bilirubin 0.7, AST 104 H, ALT 315 H*, Alkaline Phosphatase 92, Troponin I < 0.01, Total Protein 6.8, Albumin 3.6, Globulin 3.2, Albumin/Globulin Ratio 1.1 07/05/23 23:45: Troponin I < 0.01 07/05/23 20:15 07/05/23 20:15 Response Orders (Tests/Meds): ED MEDICATIONS Discontinued Medications Generic Name Dose Route Start Last Admin Trade Name Kaitlin PRN Reason Stop Dose Admin Acetaminophen 1,000 mg 07/06/23 00:47 07/06/23 01:01 Acetaminophen 500mg Tab PO 07/06/23 00:48 1,000 mg ONCE ONE Administration Aspirin 324 mg 07/05/23 20:26 07/05/23 20:50 Aspirin 81mg Chewable Tablet PO 07/05/23 20:27 324 mg ONCE ONE Administration Lactated Ringer's 1,000 mls @ 999 mls/hr 07/05/23 21:54 07/05/23 21:59 Lactated Ringer's 1000 Ml Bag IV 07/05/23 22:54 999 mls/hr .Q1H1M ONE Administration Ketorolac Tromethamine 15 mg 07/05/23 20:26 07/05/23 20:51 Ketorolac 30mg/Ml Vial IV 07/05/23 20:27 15 mg ONCE ONE Administration Ondansetron HCl 4 mg 07/05/23 20:26 07/05/23 20:51 Ondansetron 4mg/2ml Vial IV 07/05/23 20:27 4 mg ONCE ONE Administration Potassium Chloride 60 meq 07/05/23 21:54 07/05/23 21:59 Potassium Chloride 20meq Tab PO 07/05/23 21:55 60 meq ONCE ONE Administration ORDERS Category Date Time Status XR chest portable Stat Exams 07/05/23 20:26 Completed Complete Blood Count Auto Diff Stat Lab 07/05/23 20:15 Completed Comprehensive Metabolic Panel Stat Lab 07/05/23 20:15 Completed Troponin I Q3H Lab 07/05/23 23:45 Completed Troponin I Q3H Lab 07/06/23 02:30 Ordered Troponin I Stat Lab 07/05/23 20:15 Completed ECG initial [place] Routine Y 07/05/23 20:07 Completed MDM Narrative Medical Decision Narrative: 72-year-old male history of hypertension, hyperlipidemia, diabetes, hepatitis presenting with chest pain. Started about 3 PM today. Radiates through to his left shoulder. Associated shortness of breath and neck pain. Denies nausea or vomiting, fevers or chills, shortness of breath, diaphoresis,, but has had intermittent abdominal pains. Denies any recent daily drinking, smoking, or any other concerns. History was obtained via conversation with patient. On arrival, patient hemodynamically stable, alert, oriented x4, appropriate, GCS 15, moving all extremities spontaneously, pupils equal and reactive to light. Full physical exam performed and significant for disheveled, unkempt patient in no acute distress. Sleeping when I initially walked in. Lungs clear to auscultation. Abdomen soft, mildly tender in the left lower quadrant without rebound, rigidity, or guarding. Cardiac exam is normal.. Differential includes gastritis, enteritis, ACS, LA, pneumothorax, PE, disse ction, pneumothorax, aortic aneurysm, pneumonia, bronchitis, among others. Patient was given aspirin, Toradol, Zofran, potassium for symptomatic management and correction of underlying abnormalities. Workup independently interpreted and significant for hypokalemia, this was repleted. Negative troponin. Nonactionable CBC or chemistry otherwise. No acute cardiopulmonary space disease. See radiology read for full review of final results. Independent interpretation of EKG shows 65 beats a minute with T wave inversions in V3, V4, V5, V6 as well as 2, 3, aVF. No reciprocal change. RI, QRS, QT intervals within normal limits Heart score 4.Patient was placed in observation beginning at 2014 in order to rule out serial troponins and evolving LA and determine need for admission versus home-going. The patient was provided serial troponins and monitoring while awaiting results. Delta troponin pending at time of handoff to oncoming physician. <Tiesha Crane, DO - Last Filed: 07/06/23 01:18> Vital Signs Vital Signs: 07/05/23 20:24 Temperature 97.7 F Temperature Source Oral Pulse Rate [Left Radial] 73 Respiratory Rate 19 Blood Pressure [Right Arm] 142/69 H Blood Pressure Mean [Right Arm] 93 Blood Pressure Source [Right Arm] Automatic Cuff Blood Pressure Position [Right Arm] Supine 02 Sat by Pulse Oximetry 97 Oxygen Delivery Method Room Air Lab Data Labs: Lab Results 07/05/23 20:15: WBC 7.8, RBC 4.98, Hgb 12.4 L, Hct 40.9 L, MCV 82.2, MCH 25.0 L, MCHC 30.4 L, RDW 19.4 H, Plt Count 323, MPV 7.7, Neut % (Auto) 71.3, Lymph % (Auto) 19.6, [place] % (Auto) 7.8, Eos % (Auto) 0.7, Baso % (Auto) 0.6, Neut # (Auto) 5.5, Lymph # (Auto) 1.5, [place] # (Auto) 0.6, Eos # (Auto) 0.1, Baso # (Auto) 0.1, Sodium 141, Potassium 3.2 L, Chloride 109 H, Carbon Dioxide 25, Anion Gap 10.2, BUN 19, Creatinine 1.30 H, Estimated Creat Clear 60, Estimated GFR 54 L, Est GFR ( Amer) 65, Glucose 142 H, Calcium 8.7, Total Bilirubin 0.7, AST 104 H, ALT 315 H*, Alkaline Phosphatase 92, Troponin I < 0.01, Total Protein 6.8, Albumin 3.6, Globulin 3.2, Albumin/Globulin Ratio 1.1 07/05/23 23:45: Troponin I < 0.01 Response Orders (Tests/Meds): ED MEDICATIONS Discontinued Medications Generic Name Dose Route Start Last Admin Trade Name Freq PRN Reason Stop Dose Admin Acetaminophen 1,000 mg 07/06/23 00:47 07/06/23 01:01 Acetaminophen 500mg Tab PO 07/06/23 00:48 1,000 mg ONCE ONE Administration Aspirin 324 mg 07/05/23 20:26 07/05/23 20:50 Aspirin 81mg Chewable Tablet PO 07/05/23 20:27 324 mg ONCE ONE Administration Lactated Ringer's 1,000 mls @ 999 mls/hr 07/05/23 21:54 07/05/23 21:59 Lactated Ringer's 1000 Ml Bag IV 07/05/23 22:54 999 mls/hr .Q1H1M ONE Administration Ketorolac Tromethamine 15 mg 07/05/23 20:26 07/05/23 20:51 Ketorolac 30mg/Ml Vial IV 07/05/23 20:27 15 mg ONCE ONE Administration Ondansetron HCl 4 mg 07/05/23 20:26 07/05/23 20:51 Ondansetron 4mg/2ml Vial IV 07/05/23 20:27 4 mg ONCE ONE Administration Potassium Chloride 60 meq 07/05/23 21:54 07/05/23 21:59 Potassium Chloride 20meq Tab PO 07/05/23 21:55 60 meq ONCE ONE Administration ORDERS Category Date Time Status XR chest portable Stat Exams 07/05/23 20:26 Completed Complete Blood Count Auto Diff Stat Lab 07/05/23 20:15 Completed Comprehensive Metabolic Panel Stat Lab 07/05/23 20:15 Completed Troponin I Q3H Lab 07/05/23 23:45 Completed Troponin I Q3H Lab 07/06/23 02:30 Ordered Troponin I Stat Lab 07/05/23 20:15 Completed ECG initial [place] Routine Y 07/05/23 20:07 Completed MDM Narrative Medical Decision Narrative: 72-year-old male history of hypertension, hyperlipidemia, diabetes, hepatitis presenting with chest pain. Started about 3 PM today. Radiates through to his left shoulder. Associated shortness of breath and neck pain. Denies nausea or vomiting, fevers or chills, shortness of breath, diaphoresis,, but has had intermittent abdominal pains. Denies any recent daily drinking, smoking, or any other concerns. History was obtained via conversation with patient. On arrival, patient hemodynamically stable, alert, oriented x4, appropriate, GCS 15, moving all extremities spontaneously, pupils equal and reactive to light. Full physical exam performed and significant for disheveled, unkempt patient in no acute distress. Sleeping when I initially walked in. Lungs clear to auscultation. Abdomen soft, mildly tender in the left lower quadrant without rebound, rigidity, or guarding. Cardiac exam is normal.. Differential includes gastritis, enteritis, ACS, LA, pneumothorax, PE, dissection, pneumothorax, aortic aneurysm, pneumonia, bronchitis, among others. Patient was given aspirin, Toradol, Zofran, potassium for symptomatic management and correction of underlying abnormalities. Workup independently interpreted and significant for hypokalemia, this was repleted. Negative troponin. Nonactionable CBC or chemistry otherwise. No acute cardiopulmonary space disease. See radiology read for full review of final results. Independent interpretation of EKG shows 65 beats a minute with T wave inversions in V3, V4, V5, V6 as well as 2, 3, aVF. No reciprocal change. RI, QRS, QT intervals within normal limits Heart score 4.Patient was placed in observation beginning at 2014 in order to rule out serial troponins and evolving LA and determine need for admission versus home-going. The patient was provided serial troponins and monitoring while awaiting results. Delta troponin pending at time of handoff to oncoming physician. DO Royce: On my assessment of the patient, he is resting comfortably with reassuring vital signs on cardiac telemetry. He does complain of mild headache and bodyaches at this time. For this, he was given oral Tylenol. Second troponin is negative. Given reassuring workup and exam, feel the patient is appropriate for discharge with instructions for close a patient follow-up with his primary care provider. He was discharged in stable condition after all questions were answered.
[2023-07-06] VITALS (8 sets, daily range): BP systolic 105–153; BP diastolic 47–79; PULSE 58–72; RESP 16–20; TEMP 36.6; O2SAT 95–99
[2023-07-06 00:35] LABS: Troponin I < 0.01 ng/ml (0.00-0.034)
--- NOTE | 2023-07-06 01:00 | PC.NURSE ---
Contacted Gerardo Vivarer [phone] to request patient a ride or to verify someone would be at residence if we were able to obtain other transportation. Gerardo Burton stated that he would find out and call back.
[2023-07-06] MEDS: ACETAMINOPHEN 500MG TAB 1000 MG PO (01:01)
--- NOTE | 2023-07-06 01:37 | PC.NURSE ---
Attempted to call Gerardo Quevedo to follow up on our earlier phone call. No answer at this time.
--- NOTE | 2023-07-06 06:33 | PC.NURSE ---
Attempted to call Dina Burton , no answer. Spoke with patient for any other contacts to attempt to call. Patient reports that the friend he lives with doesn't currently have a phone and Micheal would be the current only contact and may not answer the phone until 8am.
--- NOTE | 2023-07-06 06:55 | PC.NURSE ---
Provided urinal to patient at this time. Encouraged patient to continue calling contacts for transport home.
--- NOTE | 2023-07-06 07:00 | PC.NURSE ---
Rounded on pt. Pt requested blanket. No other needs voiced. Call light within reach.
--- NOTE | 2023-07-06 07:52 | PC.NURSE ---
Attempted to call pt friend, Micheal Quevedo, No answer at this time. Voicemail left.
--- NOTE | 2023-07-06 08:02 | PC.NURSE ---
Attempted to call contact listed, Macy, no answer at this time
--- NOTE | 2023-07-06 08:03 | PC.NURSE ---
CM advised they would begin to work on a ride for pt
--- NOTE | 2023-07-06 08:14 | PC.NURSE ---
Pamela with CM at [facility]
--- NOTE | 2023-07-06 08:37 | PC.NURSE ---
Breakfast tray ordered for pt
--- NOTE | 2023-07-06 08:47 | PC.NURSE ---
Pt advised he does not want anything to eat at this time
--- NOTE | 2023-07-06 09:17 | PC.NURSE ---
Pamela from [employer] called advising [facility] will be coming to get Pt.
== END 2023-07-06 10:37 | disposition home or self-care (01) ==
PROVIDERS: Emergency Medicine; Emergency Provider Emergency Medicine
DX: R07.9 Chest pain, unspecified (principal); R10.9 Unspecified abdominal pain; M25.512 Pain in left shoulder; R51.9 Headache, unspecified; R19.7 Diarrhea, unspecified; R06.02 Shortness of breath; M54.2 Cervicalgia; I10 Essential (primary) hypertension; E78.5 Hyperlipidemia, unspecified; E11.9 Type 2 diabetes mellitus without complications; Z86.73 Personal history of transient ischemic attack (TIA), and cerebral infarction without residual deficits
CPT/HCPCS: 36415; 71045; 80053; 84484; 85025; 93005; 96361; 96374; 96375; 99285; J2405